=== PATIENT | male | born 1930 | race Caucasian/White ===

== ENCOUNTER → 2017-04-24 | Outpatient (CLI) | payer OTHER ==
[~2017-04-24] MED LIST: AMLODIPINE BESY10 MG PO; ASPIRIN EC325 M1 PO; CLOPIDOGREL75 MG PO; CRESTOR40 MG PO; FINASTERIDE5 MG PO; FLOMAX PO; PLAVIX 75 MG TA75 M1 PO; TAMSULOSIN HCL0.4 M1 PO; ZETIA10 MG PO; ZOCOR80 MG PO
== END ==
LOC: HYPER 06:43
DX: S91.332A Puncture wound without foreign body, left foot, initial encounter (principal); L97.821 Non-pressure chronic ulcer of other part of left lower leg limited to breakdown of skin; I25.10 Atherosclerotic heart disease of native coronary artery without angina pectoris; E78.00 Pure hypercholesterolemia, unspecified; I10 Essential (primary) hypertension; I73.9 Peripheral vascular disease, unspecified; I25.2 Old myocardial infarction; Z72.89 Other problems related to lifestyle; X58.XXXA Exposure to other specified factors, initial encounter; Y93.89 Activity, other specified; Y92.89 Other specified places as the place of occurrence of the external cause; Y99.8 Other external cause status

== ENCOUNTER → 2017-05-07 | Outpatient (CLI) | payer OTHER | LOC: HYPER 06:49 | DX: L97.821 Non-pressure chronic ulcer of other part of left lower leg limited to breakdown of skin (principal); S91.332D Puncture wound without foreign body, left foot, subsequent encounter; I25.10 Atherosclerotic heart disease of native coronary artery without angina pectoris; I73.9 Peripheral vascular disease, unspecified; I10 Essential (primary) hypertension; I25.2 Old myocardial infarction; Z72.89 Other problems related to lifestyle; X58.XXXD Exposure to other specified factors, subsequent encounter ==

== ENCOUNTER → 2017-05-20 | Outpatient (CLI) | payer OTHER | LOC: HYPER 07:10 | DX: L97.521 Non-pressure chronic ulcer of other part of left foot limited to breakdown of skin (principal); I73.9 Peripheral vascular disease, unspecified; I10 Essential (primary) hypertension; I25.10 Atherosclerotic heart disease of native coronary artery without angina pectoris; I25.2 Old myocardial infarction; E78.00 Pure hypercholesterolemia, unspecified; L84 Corns and callosities; Z98.49 Cataract extraction status, unspecified eye; Z72.89 Other problems related to lifestyle ==

== ENCOUNTER 2017-06-13 21:08 | Emergency (ER) | payer OTHER ==
[~2017-06-13] VITALS: Ht 177.8 cm; Wt 77.1 kg
[2017-06-13 23:27] VITALS: BP 150/72
[2017-11-05] MEDS ORDERED: ZOCOR20 MG PO (07:27)
[2017-11-05] MEDS ORDERED: FLOMAX0.4 MG PO (07:30)
== END 2017-06-13 23:29 | disposition home or self-care (01) ==
LOC: ER 21:08
DX: T83.098A Other mechanical complication of other urinary catheter, initial encounter (principal); I10 Essential (primary) hypertension; E78.00 Pure hypercholesterolemia, unspecified; Z96.0 Presence of urogenital implants; Z87.891 Personal history of nicotine dependence; Y84.9 Medical procedure, unspecified as the cause of abnormal reaction of the patient, or of later complication, without mention of misadventure at the time of the procedure; Y92.89 Other specified places as the place of occurrence of the external cause

== ENCOUNTER → 2017-07-10 | Outpatient (CLI) | payer OTHER ==
[~2017-07-10] MED LIST changes: +FLOMAX0.4 MG PO; +RETIN-A15 GM TOP; +ZOCOR20 MG PO
== END ==
LOC: HYPER 07-03 07:10
DX: S91.302D Unspecified open wound, left foot, subsequent encounter (principal); I73.9 Peripheral vascular disease, unspecified; I10 Essential (primary) hypertension; I25.10 Atherosclerotic heart disease of native coronary artery without angina pectoris; I25.2 Old myocardial infarction; E78.00 Pure hypercholesterolemia, unspecified; L84 Corns and callosities; Z72.89 Other problems related to lifestyle; X58.XXXD Exposure to other specified factors, subsequent encounter

== ENCOUNTER → 2017-09-15 | Outpatient (CLI) | payer OTHER ==
[~2017-09-15] MED LIST changes: -FLOMAX0.4 MG PO; -RETIN-A15 GM TOP; -ZOCOR20 MG PO
== END ==
LOC: HYPER 09-08 08:45
DX: L97.821 Non-pressure chronic ulcer of other part of left lower leg limited to breakdown of skin (principal); I73.9 Peripheral vascular disease, unspecified; I35.0 Nonrheumatic aortic (valve) stenosis; I25.10 Atherosclerotic heart disease of native coronary artery without angina pectoris; E78.1 Pure hyperglyceridemia; I10 Essential (primary) hypertension; I34.2 Nonrheumatic mitral (valve) stenosis; E78.00 Pure hypercholesterolemia, unspecified; I25.2 Old myocardial infarction

== ENCOUNTER → 2017-10-07 | Outpatient (CLI) | payer OTHER | LOC: HYPER 06:42 | DX: I70.245 Atherosclerosis of native arteries of left leg with ulceration of other part of foot (principal); L97.521 Non-pressure chronic ulcer of other part of left foot limited to breakdown of skin; L97.821 Non-pressure chronic ulcer of other part of left lower leg limited to breakdown of skin; S91.132 Puncture wound without foreign body of left great toe without damage to nail; I10 Essential (primary) hypertension; I25.2 Old myocardial infarction; I25.10 Atherosclerotic heart disease of native coronary artery without angina pectoris; I35.0 Nonrheumatic aortic (valve) stenosis; E78.1 Pure hyperglyceridemia; I34.2 Nonrheumatic mitral (valve) stenosis; E78.00 Pure hypercholesterolemia, unspecified; X58.XXXD Exposure to other specified factors, subsequent encounter ==

== ENCOUNTER → 2017-10-08 | Outpatient (CLI) | payer OTHER | LOC: ULTRA 06:56 | DX: I70.203 Unspecified atherosclerosis of native arteries of extremities, bilateral legs (principal); L97.821 Non-pressure chronic ulcer of other part of left lower leg limited to breakdown of skin ==

== ENCOUNTER → 2017-10-14 | Outpatient (CLI) | payer OTHER | LOC: HYPER 06:43 | DX: I70.245 Atherosclerosis of native arteries of left leg with ulceration of other part of foot (principal); L97.521 Non-pressure chronic ulcer of other part of left foot limited to breakdown of skin; I10 Essential (primary) hypertension; I25.10 Atherosclerotic heart disease of native coronary artery without angina pectoris; I25.2 Old myocardial infarction; I35.0 Nonrheumatic aortic (valve) stenosis; E78.1 Pure hyperglyceridemia; I34.2 Nonrheumatic mitral (valve) stenosis; E78.00 Pure hypercholesterolemia, unspecified; E78.5 Hyperlipidemia, unspecified ==

== ENCOUNTER 2017-10-28 07:54 | Observation (INO) | payer OTHER ==
[~2017-10-28] VITALS: Ht 177.8 cm; Wt 76.2 kg
[2017-10-28] MEDS ORDERED: ZETIA10 MG PO (08:01)
[2017-10-28] MEDS ORDERED: RETIN-A15 GM TOP (08:02)
[2017-10-28] MEDS ORDERED: FINASTERIDE5 MG PO (08:07)
[2017-10-28 08:12] VITALS: BP 183/72
[2017-10-28 12:48] VITALS: BP 151/69
[2017-11-05] MEDS ORDERED: ZOCOR20 MG PO (07:27)
[2017-11-05] MEDS ORDERED: FLOMAX0.4 MG PO (07:30)
== END 2017-10-28 18:51 | disposition home or self-care (01) ==
LOC: SPEC 07:54 → 2N 14:10
DX: I73.9 Peripheral vascular disease, unspecified (principal); I25.10 Atherosclerotic heart disease of native coronary artery without angina pectoris; I10 Essential (primary) hypertension; E78.00 Pure hypercholesterolemia, unspecified; M19.90 Unspecified osteoarthritis, unspecified site; L97.529 Non-pressure chronic ulcer of other part of left foot with unspecified severity; I35.0 Nonrheumatic aortic (valve) stenosis; I70.1 Atherosclerosis of renal artery; I74.5 Embolism and thrombosis of iliac artery; I34.2 Nonrheumatic mitral (valve) stenosis; Z87.891 Personal history of nicotine dependence; Z98.890 Other specified postprocedural states; Z95.5 Presence of coronary angioplasty implant and graft; Z72.89 Other problems related to lifestyle

== ENCOUNTER → 2017-11-05 | Outpatient (CLI) | payer OTHER ==
[~2017-11-05] VITALS: Ht 177.8 cm; Wt 77.1 kg
[~2017-11-05] MED LIST changes: +FLOMAX0.4 MG PO; +RETIN-A15 GM TOP; +ZOCOR20 MG PO
[2017-11-05 07:12] VITALS: BP 187/84
== END | disposition home or self-care (01) ==
LOC: SPEC 06:41
DX: I70.212 Atherosclerosis of native arteries of extremities with intermittent claudication, left leg (principal); L97.919 Non-pressure chronic ulcer of unspecified part of right lower leg with unspecified severity; I10 Essential (primary) hypertension; I25.10 Atherosclerotic heart disease of native coronary artery without angina pectoris; I25.2 Old myocardial infarction; E78.5 Hyperlipidemia, unspecified; M19.90 Unspecified osteoarthritis, unspecified site; I08.0 Rheumatic disorders of both mitral and aortic valves; Z98.890 Other specified postprocedural states; Z95.5 Presence of coronary angioplasty implant and graft; Z87.891 Personal history of nicotine dependence; Z79.899 Other long term (current) drug therapy

== ENCOUNTER → 2017-11-19 | Outpatient (CLI) | payer OTHER | LOC: HYPER 11-12 06:51 | DX: I70.245 Atherosclerosis of native arteries of left leg with ulceration of other part of foot (principal); L97.521 Non-pressure chronic ulcer of other part of left foot limited to breakdown of skin; I10 Essential (primary) hypertension; I25.10 Atherosclerotic heart disease of native coronary artery without angina pectoris; I25.2 Old myocardial infarction; E78.00 Pure hypercholesterolemia, unspecified; E78.1 Pure hyperglyceridemia; I34.2 Nonrheumatic mitral (valve) stenosis; I35.0 Nonrheumatic aortic (valve) stenosis; Z98.49 Cataract extraction status, unspecified eye ==

== ENCOUNTER → 2018-09-02 | Outpatient (CLI) | payer OTHER | LOC: HYPER 06:50 | DX: S90.812D Abrasion, left foot, subsequent encounter (principal); I73.9 Peripheral vascular disease, unspecified; I10 Essential (primary) hypertension; I25.10 Atherosclerotic heart disease of native coronary artery without angina pectoris; E78.00 Pure hypercholesterolemia, unspecified; I25.2 Old myocardial infarction; Z79.01 Long term (current) use of anticoagulants; X58.XXXD Exposure to other specified factors, subsequent encounter ==

== ENCOUNTER → 2018-09-11 | Outpatient (CLI) | payer OTHER | LOC: HYPER 06:46 | DX: S90.812D Abrasion, left foot, subsequent encounter (principal); E78.00 Pure hypercholesterolemia, unspecified; I73.9 Peripheral vascular disease, unspecified; I25.10 Atherosclerotic heart disease of native coronary artery without angina pectoris; I10 Essential (primary) hypertension; I25.2 Old myocardial infarction; Z79.01 Long term (current) use of anticoagulants; Z95.828 Presence of other vascular implants and grafts; X58.XXXD Exposure to other specified factors, subsequent encounter ==

== ENCOUNTER 2018-09-19 13:31 | Emergency (ER) | payer OTHER ==
[~2018-09-19] VITALS: Ht 177.8 cm; Wt 77.1 kg
[2018-09-19 15:10] VITALS: BP 140/76
== END 2018-09-19 15:10 | disposition home or self-care (01) ==
LOC: ER 13:31
DX: S90.922A Unspecified superficial injury of left foot, initial encounter (principal); I25.10 Atherosclerotic heart disease of native coronary artery without angina pectoris; E78.00 Pure hypercholesterolemia, unspecified; I10 Essential (primary) hypertension; Z95.5 Presence of coronary angioplasty implant and graft; I73.9 Peripheral vascular disease, unspecified; X58.XXXA Exposure to other specified factors, initial encounter; Y93.89 Activity, other specified; Y92.89 Other specified places as the place of occurrence of the external cause; Y99.8 Other external cause status

== ENCOUNTER → 2018-10-02 | Outpatient (CLI) | payer OTHER | LOC: HYPER 07:58 | DX: L89.893 Pressure ulcer of other site, stage 3 (principal); I73.9 Peripheral vascular disease, unspecified; I25.10 Atherosclerotic heart disease of native coronary artery without angina pectoris; E78.00 Pure hypercholesterolemia, unspecified; I10 Essential (primary) hypertension; I25.2 Old myocardial infarction; Z79.01 Long term (current) use of anticoagulants ==

== ENCOUNTER → 2018-10-16 | Outpatient (CLI) | payer OTHER | LOC: HYPER 08:05 | DX: L89.893 Pressure ulcer of other site, stage 3 (principal); I73.9 Peripheral vascular disease, unspecified; E78.00 Pure hypercholesterolemia, unspecified; I25.10 Atherosclerotic heart disease of native coronary artery without angina pectoris; I10 Essential (primary) hypertension; I25.2 Old myocardial infarction; Z79.01 Long term (current) use of anticoagulants; Z95.828 Presence of other vascular implants and grafts ==

== ENCOUNTER → 2018-10-23 | Outpatient (CLI) | payer OTHER | LOC: HYPER 08:27 | DX: S90.812D Abrasion, left foot, subsequent encounter (principal); L89.893 Pressure ulcer of other site, stage 3; E78.00 Pure hypercholesterolemia, unspecified; I25.10 Atherosclerotic heart disease of native coronary artery without angina pectoris; I10 Essential (primary) hypertension; I73.9 Peripheral vascular disease, unspecified; I25.2 Old myocardial infarction; Z79.01 Long term (current) use of anticoagulants; Z95.828 Presence of other vascular implants and grafts; W19.XXXD Unspecified fall, subsequent encounter ==

== ENCOUNTER → 2018-11-02 | Outpatient (CLI) | payer OTHER | LOC: HYPER 06:49 | DX: L89.893 Pressure ulcer of other site, stage 3 (principal); S90.812D Abrasion, left foot, subsequent encounter; I73.9 Peripheral vascular disease, unspecified; I25.10 Atherosclerotic heart disease of native coronary artery without angina pectoris; E78.00 Pure hypercholesterolemia, unspecified; I10 Essential (primary) hypertension; I25.2 Old myocardial infarction; Z79.01 Long term (current) use of anticoagulants; X58.XXXD Exposure to other specified factors, subsequent encounter ==

== ENCOUNTER → 2018-11-09 | Outpatient (CLI) | payer OTHER | LOC: HYPER 07:09 | DX: L89.893 Pressure ulcer of other site, stage 3 (principal); S90.812D Abrasion, left foot, subsequent encounter; I73.9 Peripheral vascular disease, unspecified; I25.10 Atherosclerotic heart disease of native coronary artery without angina pectoris; E78.00 Pure hypercholesterolemia, unspecified; I10 Essential (primary) hypertension; I25.2 Old myocardial infarction; Z79.01 Long term (current) use of anticoagulants; X58.XXXD Exposure to other specified factors, subsequent encounter ==

== ENCOUNTER → 2018-11-16 | Outpatient (CLI) | payer OTHER | LOC: HYPER 06:43 | DX: L89.893 Pressure ulcer of other site, stage 3 (principal); I73.9 Peripheral vascular disease, unspecified; I25.10 Atherosclerotic heart disease of native coronary artery without angina pectoris; E78.00 Pure hypercholesterolemia, unspecified; I10 Essential (primary) hypertension; I25.2 Old myocardial infarction; Z79.01 Long term (current) use of anticoagulants ==

== ENCOUNTER 2018-11-23 06:19 | Inpatient (IN) | payer OTHER ==
[~2018-11-23] VITALS: Ht 177.8 cm; Wt 72.6 kg
--- NOTE | 2018-11-23 17:47 | NUR ---
PT ARRIVED TO [facility] FROM DR BENAVIDES'S OFFICE DIRECT ADMIT AT 1630.ADMISSION HX,ASSESSMENT AND CARE PLAN COMPLETED.DR LARSON NOTIFIED ABOUT PT ARRIVED TO FLOOR.ERIC COLLET MAKING MACHINE OPERATOR ROUNDED ON PT AND ORDER NOTED.IV TEAM PLACED PIV.WILL CONTINUE TO MONITOR.
[2018-11-23 17:57] VITALS: BP 148/63
[2018-11-23 18:21] LABS: ABSOLUTE NEUTROPHILS 5.1 thou/uL (1.4-8.2); BASOPHILS 0.7 % (0.0-2.0); EOSINOPHILS 1.3 % (0.0-3.0); HEMATOCRIT 37.7 % (42.0-52.0); HEMOGLOBIN 12.5 gm/dL (14.0-18.0); LYMPHOCYTES 40.6 % (24.0-44.0); MCH 31.8 pg (26.0-34.0); MCHC 33.2 g/dL (28.0-37.0); MONOCYTES 10.2 % (1.0-8.0); PLATELET COUNT 133 thou/uL (150-400); POLYS 47.2 % (36.0-66.0); RBC 3.93 mil/uL (4.50-6.00); RDW 15.2 % (10.5-14.5); WBC 10.7 thou/uL (4.0-11.0)
[2018-11-23 18:38] LABS: ALBUMIN 3.6 g/dL (3.4-5.0); CALCIUM 9.3 mg/dL (8.5-10.1); POTASSIUM 4.2 mmol/L (3.5-5.1); TOTAL BILIRUBIN 0.6 mg/dL (<0.1-1.0)
[2018-11-23 22:49] LABS: URINE BILIRUBIN NEGATIVE (Negative); URINE BLOOD NEGATIVE (Negative); URINE CLARITY CLEAR; URINE COLOR YELLOW; URINE GLUCOSE-RANDOM* NEGATIVE (Negative); URINE KETONES NEGATIVE (Negative); URINE LEUKOCYTES-REFLEX NEGATIVE (Negative); URINE NITRITE-REFLEX NEGATIVE (Negative); URINE PROTEIN (DIPSTICK) NEGATIVE (Negative); URINE UROBILINOGEN 0.2 E.U./dl (0.2-1.0)
--- NOTE | 2018-11-24 01:04 | NUR ---
PT IS ALERT AND ORIENTED. USES URINAL BY THE BEDSIDE-OTHERWISE WALKS TO THE BATHROOM IF NEEDED. WOUND TO LEFT FOOT-PICTURES TAKEN. UNABLE TO COLLECT WOUND CULTURE SINCE NO DRAINAGE WAS NOTED. LEFT FOOT IS WARM, SLIGHTLY SWOLLEN AND WARM TO TOUCH. PEDAL PULSES PRESENT.AFEBRILE.STARTED ON IV ABTS.NO FURTHER CONCERNS.
[2018-11-24 04:37] VITALS: BP 148/66
[2018-11-24 07:16] VITALS: BP 158/68
--- NOTE | 2018-11-24 10:52 | NUR ---
Assumed pt care at 7am.Pt in and out of bed for activities.Assessment completed.vss.Pt c/o left foot pain rated 7/10.Oxycodone po given with relief. Dr Borja and Peter here,order noted.Pt will be going for mri at 1115 today. No further c/o.Will continue to monitor.
--- NOTE | 2018-11-24 12:23 | NUR ---
ASSESSMENT-PT LIVES AT HOME WITH HIS WHO IS YOUNGER THAN HE AND IN GOOD HEALTH., BOTH DRIVE. PT HAS BEEN USING A KNEE SCOOTER TO GET AROUND. HE DOES HIS OWN ADLS. DOES THE COOKING, CLEANING AND LAUNDRY. HE SEES DR SELF FOR WOUND CARE. PT HAS HAD [facility] IN THE PAST. PT HAS A SISTER IN THE AREA. FOLLOWING TO ASSIST WITH DC PLANNING. PT HAVING A MRI OF HIS LEFT FOOT TODAY.
[2018-11-24 15:58] VITALS: BP 116/43
[2018-11-24 19:40] VITALS: BP 136/53
--- NOTE | 2018-11-25 04:27 | NUR ---
RESTED GOOD, UP ADLIB, DRESSING LEFT FOOT CDI, STAYED LATE LAST NOC. PAIN TO BACK, CONTINUE TO ASK FOR OXYCODONE. TOLERATING ORAL INTAKE. ON IV ANTIBITICS, VANC AND ROCEPHIN, TOLERATING THEM BOTH..ABLE TO TURN AND REPOSITION SELF, MONITORED.
[2018-11-25 04:45] VITALS: BP 147/54
--- NOTE | 2018-11-25 08:39 | HC ---
[facility] [place] [address] CONSULTATION Name: MATILDE INGRAM Room #: 428-P ADM IN M.R.#: [id number] Admission: 11/23/18 ������������������ Attend Phys: Ishaan Borja MD Discharge: ������������������ Date of : 31 Report #: [id number] THIS REPORT FOR: //name// CC: Ishaan De La Rosa DATE OF SERVICE: 11/24/2018 WOUND CARE CONSULTATION PERSONAL PHYSICIAN: Hernan Zafar M.D. CHIEF COMPLAINT: Left foot wound with cellulitis. HISTORY OF PRESENT ILLNESS: This is an 87-year-old white male who was seen in the wound clinic yesterday for a chronic wound on his left foot, which was having increased erythema, warmth and tenderness. The patient has currently been on doxycycline for the past 4 days. The patient, while in the Wound Care Clinic, was felt to have failed outpatient antibiotic therapy and was warranted for IV antibiotics. The patient was agreeable to the admission. The patient states he actually feels better today. The pain in his left foot is much improved. The patient has not had his MRI that has been ordered. I did review with the patient and his in regards to his most recent angiogram, which was one year ago. It basically showed single vessel runoff on the peroneal below the knee and no distal targets for bypass grafting. A recent arterial Doppler within the past week confirmed this patency of the left SFA stent and once again, the single vessel runoff of the left peroneal artery. The patient denies fevers or chills. The patient once again feels that his foot has actually improved since yesterday after now 3 doses of IV antibiotics. PAST MEDICAL HISTORY: Significant for coronary artery disease with previous stent to his RCA and LAD. 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 MEDICATIONS: Current medications are multiple. I reviewed the patient's medication list. The patient is on Plavix. DRUG ALLERGIES: None. SOCIAL HISTORY: The patient has a remote history of smoking approximately 61-qdcd-hhyo history, but quit several years ago. Drinks alcohol socially. FAMILY HISTORY: Not pertinent to current medical condition. [address] [address] CONSULTATION Name: MATILDE INGRAM Room #: 428-P [facility] IN M.R.#: [id number] Admission: 11/23/18 ������������������ Attend Phys: Ishaan Borja MD Discharge: ������������������ Date of : 31 Report #: [id number] REVIEW OF SYSTEMS: CONSTITUTIONAL: The patient denies fevers or chills. NEUROLOGIC: The patient denies numbness, tingling or weakness in the arms or legs. EYES: No complaints. ENT: No complaints. CARDIAC: The patient denies chest pain, palpitations or peripheral edema. RESPIRATORY: The patient denies shortness breath, cough or wheezes. GASTROINTESTINAL: The patient denies nausea, vomiting or abdominal pain. GENITOURINARY: The patient denies urgency or frequency. MUSCULOSKELETAL: No complaints. SKIN: The patient has a chronic ulceration on the plantar aspect of his left fifth metatarsal head. PHYSICAL EXAMINATION: VITAL SIGNS: Temperature 36.4, pulse 72, respiratory rate 18 and blood pressure 158/68. GENERAL: This is an alert and oriented x 3, pleasant white male, who is in no obvious distress. HEENT: Normocephalic, atraumatic. Mucous membranes are moist. Pupils are round. Sclerae are white. NECK: Supple, without JVD. LUNGS: Clear. HEART: Regular. ABDOMEN: Soft, nontender. EXTREMITIES: The patient has no edema. Distal pulses are faint in both feet. Evaluation of the left foot reveals decreased erythema and warmth compared to yesterday and decreased edema. The plantar ulceration on the left fifth metatarsal head is approximately 80% slough filled and 20% granulation tissue. There is no involvement of deeper structures. There is no undermining or tunneling. Megha-wound is mildly erythematous. There is moderate amount of serosanguineous drainage noted without odor. NEUROLOGIC: Cranial nerves 2-12 are grossly intact. Motor and sensory grossly intact. LABORATORY VALUES: White count 10.7, hemoglobin 12.5. Sed rate is 44. BUN 19, creatinine 1.0. Albumin is 3.6. IMPRESSION: 1. Chronic ulceration, plantar aspect of the left foot fifth metatarsal head, limited breakdown of subcutaneous tissue. 2. Cellulitis, left foot. 3. History of severe peripheral vascular disease, status post stent placement. 4. History of coronary artery disease. PLAN: At this time, we will continue with IV antibiotics as well as a foam [address] [address] CONSULTATION Name: MATILDE INGRAM Room #: 428-P ADM IN M.R.#: [id number] Admission: 11/23/18 ������������������ Attend Phys: Ishaan Borja MD Discharge: ������������������ Date of : 31 Report #: [id number] dressing to the left foot. We will change the dressing daily. We will continue to follow the patient clinically to see how he responds to IV antibiotics can be able to discharge him to home. Wound culture is pending. We will make sure we maximize the patient's oral protein supplementation for continued healing. We will continue all other current medications. ��������������������������������������������� <ELECTRONICALLY SIGNED> ���������������������������������������� By: Charles De La Rosa MD ��������������������������������������������� 11/25/18 0839 1143 1415 Charles De La Rosa MD /nt
--- NOTE | 2018-11-25 10:42 | NUR ---
ASSUMED CARE OF PT AT 0700. ASSESSMENT CHARTED. A&O,X4. [place], HEARING AID X1 NOTED. DENIES LEFT FOOT PAIN, WOUND CARE GIVEN ORDERED. HTN, PHYSICIAN NOTIFIED. RESTARTED HOME BP MEDS ORDERED. WILL CONTINUE TO MONITOR UNTIL EOS.
--- NOTE | 2018-11-25 14:01 | HC ---
[facility] [place] [address] CONSULTATION Name: MATILDE INGRAM Room #: 428-P ADM IN M.R.#: [id number] Admission: 11/23/18 ������������������ Attend Phys: Ishaan Borja MD Discharge: ������������������ Date of : 31 Report #: [id number] THIS REPORT FOR: //name// CC: Ishaan De La Rosa DATE OF SERVICE: 11/24/2018 INFECTIOUS DISEASE CONSULTATION REASON FOR CONSULTATION: I was asked to evaluate concerning left foot soft tissue infection. HISTORY OF PRESENT ILLNESS: The patient is an 87-year-old with peripheral vascular disease, 6 weeks ago, had debridement of a callus involving the plantar aspect of his fifth metatarsal head. Subsequently, has had a wound that has failed to heal. He has been treated with outpatient oral antibiotics without improvement. Most recently, he has been on doxycycline. Has a moderate amount of pain in the left foot. Has distal vascular obstruction. His left lower extremity stents remain patent. He is a past smoker. No other injuries. He also developed an ulceration to the medial aspect of his third toe on the left foot. He reports no other injuries. He was admitted yesterday, placed on IV antibiotic therapy. ALLERGIES: None. MEDICATIONS: As noted on his MAR, which were reviewed. PAST MEDICAL HISTORY: Coronary artery disease, peripheral vascular disease, previous stenting, hypertension, hyperlipidemia, and aortic and mitral stenosis. FAMILY HISTORY: Noncontributory. SOCIAL HISTORY: Past smoker, no significant alcohol intake. Retired from [employer] in [place]. REVIEW OF SYSTEMS: Ten-point review was negative other than what has been described above. PHYSICAL EXAMINATION: VITAL SIGNS: Afebrile and hemodynamically stable. GENERAL: He is alert, cooperative, and pleasant, in no acute distress. SKIN: Without rash or decubitus. Further described on his extremity examination, no lymphadenopathy palpable. HEENT: Eyes, without scleral icterus. Mouth without mucositis. [facility] [address] [place] [address] CONSULTATION Name: MATILDE INGRAM Room #: 428-P [facility] IN .R.#: [id number] Admission: 11/23/18 ������������������ Attend Phys: Ishaan Borja MD Discharge: ������������������ Date of : 31 Report #: [id number] NECK: Supple. LUNGS: Clear. HEART: Regular with a 2/6 murmur at left sternal border as well as at the apex. ABDOMEN: Soft and nontender with no hepatosplenomegaly or mass. EXTREMITIES: Pulses in the groin were normal. Diminished pulse in the popliteal. Absent pulses in the foot. He had a left plantar foot wound over the metatarsal head. There was no purulent drainage. There were surrounding erythema. He had dependent rubor. Also, an ulceration over the medial aspect of his third toe. There is minimal drainage. Capillary refill is slow. Sensation in the feet intact. Mood normal. Strength in his upper and lower extremities was normal. LABORATORY STUDIES: Hemoglobin 12.5 and white count 10.7. Sedimentation rate 44, creatinine 1. MRI scan, no evidence of osteomyelitis or abscess. I am awaiting culture results, they were obtained in the outpatient setting. IMPRESSION: An 87-year-old with peripheral vascular disease and nonhealing wound to the left lateral foot. I am suspecting nonhealing due to his vascular insufficiency. We will await culture results. In the meantime, we will continue IV antibiotic therapy. May wish Vascular Radiology to reevaluate if anything else is stentable. If not, may need surgical evaluation for distal bypass. Otherwise, we will continue antibiotics, wound care, offloading. ��������������������������������������������� <ELECTRONICALLY SIGNED> ���������������������������������������� By: Sim Cortes MD ��������������������������������������������� 11/25/18 1401 2039 0432 Sim Cortes MD /nt
[2018-11-25 14:34] VITALS: BP 132/52
[2018-11-25 15:07] VITALS: BP 132/52
--- NOTE | 2018-11-25 15:12 | NUR ---
Pt dcing home later today with his . Plan at this time is to resume hh nursing with [facility]. Wound cultures being sent out today. Pt to dc home on po atb and see dr. liao next Friday and dr. De La Rosa in the wound clinic next week. Pt and spouse updated at bedside. Nursing aware of the dc plan. Awaiting final orders. [facility] can accept for readmission.
[2018-11-25] MEDS ORDERED: CEFDINIR300 MG PO (16:11)
[2018-11-25] MEDS ORDERED: PROBIOTIC1 EAC2 PO (16:11)
[2018-11-25 16:20] VITALS: BP 132/52
[2018-11-25 16:28] VITALS: BP 137/66
[2018-11-25] MEDS ORDERED: CIPRO500 MG PO (16:29)
== END 2018-11-25 17:49 | disposition home health service (06) | DRG 603 ==
LOC: HYPER 06:19 → 4E 15:53
PROVIDERS: Nurse Practitioner; ADMIT Internal Medicine
DX: L03.116 Cellulitis of left lower limb (principal); L97.829 Non-pressure chronic ulcer of other part of left lower leg with unspecified severity; I25.10 Atherosclerotic heart disease of native coronary artery without angina pectoris; I10 Essential (primary) hypertension; E78.00 Pure hypercholesterolemia, unspecified; I73.9 Peripheral vascular disease, unspecified; E78.5 Hyperlipidemia, unspecified; M19.90 Unspecified osteoarthritis, unspecified site; G89.29 Other chronic pain; M54.9 Dorsalgia, unspecified; N40.0 Benign prostatic hyperplasia without lower urinary tract symptoms; Z87.891 Personal history of nicotine dependence; Z95.820 Peripheral vascular angioplasty status with implants and grafts; Z79.899 Other long term (current) drug therapy; Z95.5 Presence of coronary angioplasty implant and graft
CPT/HCPCS: 10783

== ENCOUNTER → 2018-12-04 | Outpatient (CLI) | payer OTHER ==
[~2018-12-04] MED LIST changes: +CEFDINIR300 MG PO; +CIPRO500 MG PO; +PROBIOTIC1 EAC2 PO
== END ==
LOC: HYPER 07:03
DX: I70.245 Atherosclerosis of native arteries of left leg with ulceration of other part of foot (principal); L97.521 Non-pressure chronic ulcer of other part of left foot limited to breakdown of skin; L89.893 Pressure ulcer of other site, stage 3; S90.812D Abrasion, left foot, subsequent encounter; I10 Essential (primary) hypertension; I25.10 Atherosclerotic heart disease of native coronary artery without angina pectoris; E78.00 Pure hypercholesterolemia, unspecified; I25.2 Old myocardial infarction; Z79.01 Long term (current) use of anticoagulants; X58.XXXD Exposure to other specified factors, subsequent encounter

== ENCOUNTER → 2018-12-11 | Outpatient (CLI) | payer OTHER | LOC: HYPER 06:49 | DX: L89.893 Pressure ulcer of other site, stage 3 (principal); S90.812D Abrasion, left foot, subsequent encounter; I73.9 Peripheral vascular disease, unspecified; I25.10 Atherosclerotic heart disease of native coronary artery without angina pectoris; E78.00 Pure hypercholesterolemia, unspecified; I10 Essential (primary) hypertension; I25.2 Old myocardial infarction; Z79.01 Long term (current) use of anticoagulants; X58.XXXD Exposure to other specified factors, subsequent encounter ==

== ENCOUNTER → 2018-12-18 | Outpatient (CLI) | payer OTHER | LOC: HYPER 06:48 | DX: S90.812D Abrasion, left foot, subsequent encounter (principal); L89.893 Pressure ulcer of other site, stage 3; E78.00 Pure hypercholesterolemia, unspecified; I73.9 Peripheral vascular disease, unspecified; I25.10 Atherosclerotic heart disease of native coronary artery without angina pectoris; I10 Essential (primary) hypertension; I25.2 Old myocardial infarction; Z79.01 Long term (current) use of anticoagulants; Z95.828 Presence of other vascular implants and grafts ==

== ENCOUNTER → 2018-12-23 | Outpatient (CLI) | payer OTHER | LOC: HYPER 06:38 | DX: L89.893 Pressure ulcer of other site, stage 3 (principal); S90.812D Abrasion, left foot, subsequent encounter; E78.00 Pure hypercholesterolemia, unspecified; I25.10 Atherosclerotic heart disease of native coronary artery without angina pectoris; I10 Essential (primary) hypertension; I73.9 Peripheral vascular disease, unspecified; I25.2 Old myocardial infarction; Z95.818 Presence of other cardiac implants and grafts; Z79.01 Long term (current) use of anticoagulants; W19.XXXD Unspecified fall, subsequent encounter ==

== ENCOUNTER → 2019-01-01 | Outpatient (CLI) | payer OTHER | LOC: HYPER 08:04 | DX: S80.812D Abrasion, left lower leg, subsequent encounter (principal); L89.893 Pressure ulcer of other site, stage 3; I10 Essential (primary) hypertension; I73.9 Peripheral vascular disease, unspecified; I25.10 Atherosclerotic heart disease of native coronary artery without angina pectoris; E78.00 Pure hypercholesterolemia, unspecified; I25.2 Old myocardial infarction; Z79.01 Long term (current) use of anticoagulants; X58.XXXD Exposure to other specified factors, subsequent encounter ==

== ENCOUNTER → 2019-01-08 | Outpatient (CLI) | payer OTHER | LOC: HYPER 08:40 | DX: S90.812D Abrasion, left foot, subsequent encounter (principal); L89.893 Pressure ulcer of other site, stage 3; E78.00 Pure hypercholesterolemia, unspecified; I73.9 Peripheral vascular disease, unspecified; I25.10 Atherosclerotic heart disease of native coronary artery without angina pectoris; I10 Essential (primary) hypertension; I25.2 Old myocardial infarction; Z79.01 Long term (current) use of anticoagulants; Z95.828 Presence of other vascular implants and grafts; X58.XXXD Exposure to other specified factors, subsequent encounter ==

== ENCOUNTER → 2019-01-11 | Outpatient (CLI) | payer OTHER | LOC: HYPER 09:15 | DX: L89.893 Pressure ulcer of other site, stage 3 (principal); S90.812D Abrasion, left foot, subsequent encounter; I73.9 Peripheral vascular disease, unspecified; I25.10 Atherosclerotic heart disease of native coronary artery without angina pectoris; I10 Essential (primary) hypertension; I25.2 Old myocardial infarction; E78.00 Pure hypercholesterolemia, unspecified; Z79.01 Long term (current) use of anticoagulants; X58.XXXD Exposure to other specified factors, subsequent encounter ==

== ENCOUNTER → 2019-01-18 | Outpatient (CLI) | payer OTHER | LOC: HYPER 01-15 07:41 | DX: S90.812D Abrasion, left foot, subsequent encounter (principal); L89.893 Pressure ulcer of other site, stage 3; E78.00 Pure hypercholesterolemia, unspecified; I25.10 Atherosclerotic heart disease of native coronary artery without angina pectoris; I10 Essential (primary) hypertension; I73.9 Peripheral vascular disease, unspecified; I25.2 Old myocardial infarction; Z95.818 Presence of other cardiac implants and grafts; Z79.01 Long term (current) use of anticoagulants; W19.XXXD Unspecified fall, subsequent encounter ==

== ENCOUNTER → 2019-01-29 | Outpatient (CLI) | payer OTHER | LOC: HYPER 07:03 | DX: S90.812D Abrasion, left foot, subsequent encounter (principal); L89.893 Pressure ulcer of other site, stage 3; E78.00 Pure hypercholesterolemia, unspecified; I25.10 Atherosclerotic heart disease of native coronary artery without angina pectoris; I10 Essential (primary) hypertension; I73.9 Peripheral vascular disease, unspecified; I25.2 Old myocardial infarction; Z79.01 Long term (current) use of anticoagulants; Z95.828 Presence of other vascular implants and grafts; W19.XXXD Unspecified fall, subsequent encounter ==

== ENCOUNTER → 2019-02-05 | Outpatient (CLI) | payer OTHER | LOC: HYPER 07:00 | DX: L89.893 Pressure ulcer of other site, stage 3 (principal); S90.812D Abrasion, left foot, subsequent encounter; I73.9 Peripheral vascular disease, unspecified; I25.10 Atherosclerotic heart disease of native coronary artery without angina pectoris; I10 Essential (primary) hypertension; I25.2 Old myocardial infarction; I05.0 Rheumatic mitral stenosis; E78.00 Pure hypercholesterolemia, unspecified; Z79.01 Long term (current) use of anticoagulants; X58.XXXD Exposure to other specified factors, subsequent encounter ==

== ENCOUNTER → 2019-02-11 | Outpatient (CLI) | payer OTHER | LOC: HYPER 07:00 | DX: L89.893 Pressure ulcer of other site, stage 3 (principal); S90.812D Abrasion, left foot, subsequent encounter; I73.9 Peripheral vascular disease, unspecified; I25.10 Atherosclerotic heart disease of native coronary artery without angina pectoris; E78.00 Pure hypercholesterolemia, unspecified; I10 Essential (primary) hypertension; I25.2 Old myocardial infarction; Z79.01 Long term (current) use of anticoagulants; X58.XXXD Exposure to other specified factors, subsequent encounter ==

== ENCOUNTER → 2019-02-19 | Outpatient (CLI) | payer OTHER | LOC: HYPER 08:53 | DX: L89.893 Pressure ulcer of other site, stage 3 (principal); S90.812D Abrasion, left foot, subsequent encounter; I73.9 Peripheral vascular disease, unspecified; I25.10 Atherosclerotic heart disease of native coronary artery without angina pectoris; E78.00 Pure hypercholesterolemia, unspecified; I10 Essential (primary) hypertension; I25.2 Old myocardial infarction; Z79.01 Long term (current) use of anticoagulants; X58.XXXD Exposure to other specified factors, subsequent encounter ==

== ENCOUNTER → 2019-05-12 | Outpatient (CLI) | payer OTHER | LOC: HYPER 13:58 | DX: L89.893 Pressure ulcer of other site, stage 3 (principal); S90.122A Contusion of left lesser toe(s) without damage to nail, initial encounter; S91.104A Unspecified open wound of right lesser toe(s) without damage to nail, initial encounter; I73.9 Peripheral vascular disease, unspecified; I25.10 Atherosclerotic heart disease of native coronary artery without angina pectoris; I10 Essential (primary) hypertension; E78.00 Pure hypercholesterolemia, unspecified; I25.2 Old myocardial infarction; Z79.01 Long term (current) use of anticoagulants; X58.XXXA Exposure to other specified factors, initial encounter; Y93.89 Activity, other specified; Y92.89 Other specified places as the place of occurrence of the external cause; Y99.8 Other external cause status ==

== ENCOUNTER 2019-05-21 12:30 | Emergency (ER) | payer OTHER ==
[~2019-05-21] VITALS: Ht 177.8 cm; Wt 72.6 kg
[2019-05-21] MEDS ORDERED: GABAPENTIN 100100 MG PO (12:47)
[2019-05-21] MEDS ORDERED: NORCO 5-325 TA1 EAC1 PO (12:47)
[2019-05-21] MEDS ORDERED: DOXYCYCLINE 10100 M2 PO (12:47)
[2019-05-21 14:00] VITALS: BP 110/78
== END 2019-05-21 14:00 | disposition home or self-care (01) ==
LOC: ER 12:30
DX: R23.8 Other skin changes (principal); I10 Essential (primary) hypertension; E78.00 Pure hypercholesterolemia, unspecified; Z87.891 Personal history of nicotine dependence

== ENCOUNTER → 2019-05-24 | Outpatient (CLI) | payer OTHER ==
[~2019-05-24] MED LIST changes: +DOXYCYCLINE 10100 M2 PO; +GABAPENTIN 100100 MG PO; +NORCO 5-325 TA1 EAC1 PO
== END ==
LOC: HYPER 13:05
DX: S90.122D Contusion of left lesser toe(s) without damage to nail, subsequent encounter (principal); S90.414D Abrasion, right lesser toe(s), subsequent encounter; L89.893 Pressure ulcer of other site, stage 3; E78.00 Pure hypercholesterolemia, unspecified; I25.10 Atherosclerotic heart disease of native coronary artery without angina pectoris; I10 Essential (primary) hypertension; I73.9 Peripheral vascular disease, unspecified; I25.2 Old myocardial infarction; Z95.828 Presence of other vascular implants and grafts; Z79.01 Long term (current) use of anticoagulants; W19.XXXD Unspecified fall, subsequent encounter

== ENCOUNTER → 2019-06-07 | Outpatient (CLI) | payer OTHER | LOC: HYPER 10:14 | DX: S90.122A Contusion of left lesser toe(s) without damage to nail, initial encounter (principal); L89.893 Pressure ulcer of other site, stage 3; I73.9 Peripheral vascular disease, unspecified; I10 Essential (primary) hypertension; I25.2 Old myocardial infarction; I25.10 Atherosclerotic heart disease of native coronary artery without angina pectoris; E78.00 Pure hypercholesterolemia, unspecified; Z95.5 Presence of coronary angioplasty implant and graft; Z79.01 Long term (current) use of anticoagulants; X58.XXXA Exposure to other specified factors, initial encounter; Y93.89 Activity, other specified; Y92.89 Other specified places as the place of occurrence of the external cause; Y99.8 Other external cause status ==

== ENCOUNTER → 2019-06-22 | Outpatient (CLI) | payer OTHER | LOC: HYPER 11:04 | DX: S90.122D Contusion of left lesser toe(s) without damage to nail, subsequent encounter (principal); L89.893 Pressure ulcer of other site, stage 3; E78.00 Pure hypercholesterolemia, unspecified; I25.2 Old myocardial infarction; I73.9 Peripheral vascular disease, unspecified; I25.10 Atherosclerotic heart disease of native coronary artery without angina pectoris; I10 Essential (primary) hypertension; Z79.01 Long term (current) use of anticoagulants; Z95.828 Presence of other vascular implants and grafts; X58.XXXD Exposure to other specified factors, subsequent encounter ==

== ENCOUNTER → 2019-07-07 | Outpatient (CLI) | payer OTHER | LOC: HYPER 08:16 | DX: I70.245 Atherosclerosis of native arteries of left leg with ulceration of other part of foot (principal); L97.521 Non-pressure chronic ulcer of other part of left foot limited to breakdown of skin; L89.893 Pressure ulcer of other site, stage 3; S90.122D Contusion of left lesser toe(s) without damage to nail, subsequent encounter; E78.00 Pure hypercholesterolemia, unspecified; I25.10 Atherosclerotic heart disease of native coronary artery without angina pectoris; I10 Essential (primary) hypertension; I25.2 Old myocardial infarction; Z79.01 Long term (current) use of anticoagulants; Z95.828 Presence of other vascular implants and grafts; X58.XXXD Exposure to other specified factors, subsequent encounter ==

== ENCOUNTER → 2019-07-21 | Outpatient (CLI) | payer OTHER | LOC: HYPER 13:23 | DX: I70.245 Atherosclerosis of native arteries of left leg with ulceration of other part of foot (principal); L89.893 Pressure ulcer of other site, stage 3; L97.521 Non-pressure chronic ulcer of other part of left foot limited to breakdown of skin; I25.10 Atherosclerotic heart disease of native coronary artery without angina pectoris; E78.00 Pure hypercholesterolemia, unspecified; I10 Essential (primary) hypertension; H26.9 Unspecified cataract; I25.2 Old myocardial infarction ==

== ENCOUNTER → 2019-08-04 | Outpatient (CLI) | payer OTHER | LOC: HYPER 14:14 | DX: I70.245 Atherosclerosis of native arteries of left leg with ulceration of other part of foot (principal); L89.893 Pressure ulcer of other site, stage 3; L97.521 Non-pressure chronic ulcer of other part of left foot limited to breakdown of skin; S90.122D Contusion of left lesser toe(s) without damage to nail, subsequent encounter; I25.10 Atherosclerotic heart disease of native coronary artery without angina pectoris; E78.00 Pure hypercholesterolemia, unspecified; I10 Essential (primary) hypertension; H26.9 Unspecified cataract; I25.2 Old myocardial infarction; Z95.828 Presence of other vascular implants and grafts; Z79.01 Long term (current) use of anticoagulants; W19.XXXD Unspecified fall, subsequent encounter ==

== ENCOUNTER → 2019-08-18 | Outpatient (CLI) | payer OTHER | LOC: HYPER 12:50 | DX: I70.245 Atherosclerosis of native arteries of left leg with ulceration of other part of foot (principal); L89.893 Pressure ulcer of other site, stage 3; L97.521 Non-pressure chronic ulcer of other part of left foot limited to breakdown of skin; S90.122D Contusion of left lesser toe(s) without damage to nail, subsequent encounter; E78.00 Pure hypercholesterolemia, unspecified; I25.10 Atherosclerotic heart disease of native coronary artery without angina pectoris; I10 Essential (primary) hypertension; I25.2 Old myocardial infarction; Z79.01 Long term (current) use of anticoagulants; Z95.828 Presence of other vascular implants and grafts; X58.XXXD Exposure to other specified factors, subsequent encounter ==

== ENCOUNTER → 2019-08-25 | Outpatient (CLI) | payer OTHER | LOC: HYPER 10:18 | DX: I70.245 Atherosclerosis of native arteries of left leg with ulceration of other part of foot (principal); L89.893 Pressure ulcer of other site, stage 3; L97.521 Non-pressure chronic ulcer of other part of left foot limited to breakdown of skin; L84 Corns and callosities; S90.122D Contusion of left lesser toe(s) without damage to nail, subsequent encounter; E78.00 Pure hypercholesterolemia, unspecified; I25.10 Atherosclerotic heart disease of native coronary artery without angina pectoris; I10 Essential (primary) hypertension; I25.2 Old myocardial infarction; Z79.01 Long term (current) use of anticoagulants; Z95.828 Presence of other vascular implants and grafts; X58.XXXD Exposure to other specified factors, subsequent encounter ==

== ENCOUNTER → 2019-09-06 | Outpatient (CLI) | payer OTHER | LOC: HYPER 09:55 | DX: I70.245 Atherosclerosis of native arteries of left leg with ulceration of other part of foot (principal); L89.893 Pressure ulcer of other site, stage 3; L97.521 Non-pressure chronic ulcer of other part of left foot limited to breakdown of skin; S90.122D Contusion of left lesser toe(s) without damage to nail, subsequent encounter; L84 Corns and callosities; E78.00 Pure hypercholesterolemia, unspecified; H26.9 Unspecified cataract; I25.10 Atherosclerotic heart disease of native coronary artery without angina pectoris; I10 Essential (primary) hypertension; I25.2 Old myocardial infarction; I05.0 Rheumatic mitral stenosis; Z79.01 Long term (current) use of anticoagulants; Z95.828 Presence of other vascular implants and grafts; X58.XXXD Exposure to other specified factors, subsequent encounter ==

== ENCOUNTER → 2019-09-20 | Outpatient (CLI) | payer OTHER | LOC: HYPER 13:34 | DX: I70.245 Atherosclerosis of native arteries of left leg with ulceration of other part of foot (principal); L89.893 Pressure ulcer of other site, stage 3; L97.521 Non-pressure chronic ulcer of other part of left foot limited to breakdown of skin; S90.122D Contusion of left lesser toe(s) without damage to nail, subsequent encounter; E78.00 Pure hypercholesterolemia, unspecified; H26.9 Unspecified cataract; I25.10 Atherosclerotic heart disease of native coronary artery without angina pectoris; I10 Essential (primary) hypertension; I25.2 Old myocardial infarction; Z79.01 Long term (current) use of anticoagulants; Z95.828 Presence of other vascular implants and grafts; W19.XXXD Unspecified fall, subsequent encounter ==

== ENCOUNTER → 2019-09-27 | Outpatient (CLI) | payer OTHER | LOC: HYPER 13:22 | DX: I70.245 Atherosclerosis of native arteries of left leg with ulceration of other part of foot (principal); L89.893 Pressure ulcer of other site, stage 3; L97.521 Non-pressure chronic ulcer of other part of left foot limited to breakdown of skin; S90.122D Contusion of left lesser toe(s) without damage to nail, subsequent encounter; I25.10 Atherosclerotic heart disease of native coronary artery without angina pectoris; E78.00 Pure hypercholesterolemia, unspecified; I10 Essential (primary) hypertension; H26.9 Unspecified cataract; I25.2 Old myocardial infarction; Z95.828 Presence of other vascular implants and grafts; X58.XXXD Exposure to other specified factors, subsequent encounter ==

== ENCOUNTER → 2019-10-04 | Outpatient (CLI) | payer OTHER | LOC: HYPER 10:23 | DX: I70.245 Atherosclerosis of native arteries of left leg with ulceration of other part of foot (principal); L89.893 Pressure ulcer of other site, stage 3; L97.521 Non-pressure chronic ulcer of other part of left foot limited to breakdown of skin; S90.122D Contusion of left lesser toe(s) without damage to nail, subsequent encounter; I25.10 Atherosclerotic heart disease of native coronary artery without angina pectoris; E78.00 Pure hypercholesterolemia, unspecified; I10 Essential (primary) hypertension; H26.9 Unspecified cataract; Z79.01 Long term (current) use of anticoagulants; X58.XXXD Exposure to other specified factors, subsequent encounter ==

== ENCOUNTER → 2019-10-12 | Outpatient (CLI) | payer OTHER ==
[~2019-10-12] MED LIST changes: +AUGMENTIN 875-1 EACH PO; +PERCOCET 5-3251 EACH PO
== END ==
LOC: HYPER 13:16
DX: I70.245 Atherosclerosis of native arteries of left leg with ulceration of other part of foot (principal); L97.522 Non-pressure chronic ulcer of other part of left foot with fat layer exposed; S90.122D Contusion of left lesser toe(s) without damage to nail, subsequent encounter; E78.00 Pure hypercholesterolemia, unspecified; H26.9 Unspecified cataract; I25.10 Atherosclerotic heart disease of native coronary artery without angina pectoris; I10 Essential (primary) hypertension; I25.2 Old myocardial infarction; Z79.01 Long term (current) use of anticoagulants; Z95.818 Presence of other cardiac implants and grafts; X58.XXXD Exposure to other specified factors, subsequent encounter

== ENCOUNTER 2019-10-16 13:42 | Inpatient (IN) | payer OTHER ==
[~2019-10-16] VITALS: Ht 177.8 cm; Wt 73.9 kg
[~2019-10-16 13:42] MED LIST changes: -AUGMENTIN 875-1 EACH PO; -PERCOCET 5-3251 EACH PO
[2019-10-16 13:56] VITALS: BP 161/46
[2019-10-16 15:40] LABS: ABSOLUTE NEUTROPHILS 6.8 thou/uL (1.4-8.2); BASOPHILS 0.5 % (0.0-2.0); EOSINOPHILS 0.8 % (0.0-3.0); HEMATOCRIT 41.1 % (42.0-52.0); HEMOGLOBIN 13.8 gm/dL (14.0-18.0); LYMPHOCYTES 21.7 % (24.0-44.0); MCH 32.5 pg (26.0-34.0); MCHC 33.6 g/dL (28.0-37.0); MCV 96.6 fL (80.0-100.0); MONOCYTES 11.1 % (1.0-8.0); PLATELET COUNT 159 thou/uL (150-400); POLYS 65.9 % (36.0-66.0); RBC 4.25 mil/uL (4.50-6.00); RDW 15.9 % (10.5-14.5); WBC 10.4 thou/uL (4.0-11.0)
[2019-10-16 15:48] LABS: CALCIUM 8.5 mg/dL (8.5-10.1); CREATININE 1.2 mg/dL (0.7-1.3); POTASSIUM 4.8 mmol/L (3.5-5.1)
[2019-10-16 15:54] LABS: ALBUMIN 3.1 g/dL (3.4-5.0); TOTAL BILIRUBIN 0.6 mg/dL (<0.1-1.0); TOTAL PROTEIN 7.5 g/dL (6.4-8.2)
[2019-10-16 18:34] VITALS: BP 150/60
--- NOTE | 2019-10-16 18:40 | NUR ---
NURSE NOT AVAILABLE TO TAKE MY CALL/REPORT
[2019-10-16 18:55] VITALS: BP 120/60
[2019-10-16 19:45] VITALS: BP 146/66
--- NOTE | 2019-10-17 03:21 | NUR ---
ADMITTED FROM ER UNDER 'S CARE. LTOE GANGRENE. PIC TAKEN AND NEW DRESSING APPLIED. VSS. NO S/S ACUTE DISTRESS NOTED OR REPORTED AT THIS TIME. WILL CONT TO MONITOR FOR ANY CHANGES IN CONDITION.
[2019-10-17 04:48] VITALS: BP 149/49
--- NOTE | 2019-10-17 07:50 | NUR ---
Patient's left foot wound is dry, wound culture speciment can not be obtained, lab notified, will contact the doctor.
[2019-10-17 08:01] VITALS: BP 163/74
[2019-10-17 15:27] VITALS: BP 154/64
--- NOTE | 2019-10-17 19:42 | NUR ---
A/o, compained pain in left foot, pain medication given and worked. Abx given. patient did not have good appetite, but claiming he was trying his best to each as much as he could. afebrile, no n/v. assessment without abnormalities expecept previously noted.
[2019-10-17 19:55] VITALS: BP 165/66
--- NOTE | 2019-10-17 22:12 | NUR ---
PT WAS TRANSFERRED TO [facility]. REPORT CALLED TO CANELO SWANN. BELONGINGS SENT WITH THE PT. SPOUSE AINSLEY WAS CALLED AND MADE AWARE OF THE TRANSFER.
[2019-10-18 04:29] VITALS: BP 145/72
--- NOTE | 2019-10-18 07:41 | NUR ---
PT TRANSFERRED FROM AT 2230. AMBULATING TO BATHROOM INDEPENDNETLY. LORTAB PROVIDING PAIN RELIEF. RESTING COMFORTABLY. NO NEEDS VOICED. CALL LIGHT WITHIN REACH. FREQUENT OBSERVATION.
[2019-10-18 08:40] VITALS: BP 161/67
--- NOTE | 2019-10-18 13:40 | HC ---
[facility] [place] [address] CONSULTATION Name: MATILDE INGRAM Room #: 447-P ADM IN M.R.#: [id number] Admission: 10/16/19 Attend Phys: Ishaan Borja MD Discharge: Date of : 31 Report #: [id number] THIS REPORT FOR: cc: Patrick Samuel Ronald D. DO [place], Allen B. MD ~ CC: Ishaan Samuel DATE OF SERVICE: 10/17/2019 WOUND CARE CONSULTATION REASON FOR CONSULTATION: Dry gangrene and cellulitis of left second toe in the setting of severe known peripheral vascular disease of left leg. HISTORY OF PRESENT ILLNESS: The patient is an 88-year-old gentleman well known to Dr. Charles De La Rosa from recent treatments and to Dr. Jonn Rivers from previous vascular interventions. Dr. Mccauley is his primary care physician. His wound care patient of Dr. De La Rosa in [facility]. Dr. Rivers has treated the patient with Interventional Radiology in 2018 with peripheral angioplasty and stenting of his left lower extremity. There indications this may have been "end stage" peripheral vascular disease. The patient was subsequently seen at [facility] and may have had additional peripheral angioplasty or stenting. The patient has had chronic trouble with the left leg and left second toe hospitalized a year ago for cellulitis of the left leg and an ulcer of the left second toe. This was treated with antibiotics. Very recently the toes become worse with increased pain, redness and tenderness. He is now hospitalized and on IV antibiotics, vancomycin and Zosyn. The patient complains of pain in the toe feels that it is worse. PAST MEDICAL HISTORY: Coronary artery disease, history of left toe ulcer and left leg cellulitis. ALLERGIES: No known drug allergies. MEDICATIONS: Plavix, Crestor, recent doxycycline, Neurontin, [place], Zetia, Retin-A, Flomax. PAST SURGICAL HISTORY: Multiple plastic surgeries including facial, coronary artery disease with stenting, stenting of left leg. PAST MEDICAL HISTORY of peripheral artery disease, aortic and mitral stenosis, degenerative joint disease, hypercholesterolemia, hypertension. [facility] [address] [place] [address] CONSULTATION Name: MATILDE INGRAM Room #: 447-P [facility] IN M.R.#: [id number] Admission: 10/16/19 Attend Phys: Ishaan Borja MD Discharge: Date of : 31 Report #: [id number] REVIEW OF SYSTEMS: Pain in the left second toe. PHYSICAL EXAMINATION: GENERAL: Shows a well-appearing elderly gentleman who has had some facial plastic surgery, alert, pleasant, conversant. HEENT: Mucous membranes moist. NECK: Supple. LUNGS: Respirations are unlabored. ABDOMEN: Soft. EXTREMITIES: Shows dry gangrene of the left second toe through to the dorsal interphalangeal joint. This is dry and black without drainage. There is some redness and tenderness of the proximal left second toe. This does not appear to extend to the foot. Pulses are not palpable. X-ray of left foot shows no bony disease. IMPRESSION: 1. Coronary artery disease with stenting. 2. Severe peripheral vascular disease of left lower extremity with multiple past vascular and interventional procedures now gangrene of the left second toe. Dry gangrene demarcated to the distal interphalangeal joint with cellulitis of the left second toe. PLAN: Dry dressings to the left foot, IV antibiotics. Dr. Rivers is aware that the patient back in the hospital and asked to be consulted, Friday morning. We will observe on IV antibiotics, some form of amputation we needed with vascular involvement with some form of amputation we will be needed with vascular opinion and involvement. <ELECTRONICALLY SIGNED> By: Cristo Dickens MD 10/18/19 1340 1335 1622 Cristo Dickens MD /nt
[2019-10-18 16:13] VITALS: BP 120/61
--- NOTE | 2019-10-18 18:00 | NUR ---
Assumed care of pt at 0700. Pt a&ox4. Seen by wound doctor. IV antibiotics infusing. Up ad césar in the room. Prn pain meds administered per pt request. Call light within reach. Will continue to monitor.
[2019-10-18 19:50] VITALS: BP 178/63
--- NOTE | 2019-10-19 03:05 | NUR ---
ASSUMED PT CARE AT 1900. PT IS UP AD SHARMAINE IN ROOM. PAIN BEING MANAGED WITH PO PAIN MEDS. PM MEDS PASSED. NO SIGNIFICANT CHANGES OVERNIGHT.
--- NOTE | 2019-10-19 10:50 | NUR ---
chart, milena visited with pt via phone call. intro to cm and dcp. he a & o x 4, and able to make his needs know. " i had iv fore 4 days i should be able to do home. live with , independent. drive, shower chair, manage own medication. 3 steps to enter then everything on main level. don't have to go up stairs that is where extra bedrooms are. go to [facility] wound clinic. i want to go home"/tara. will cont following as needed for dc needs.
--- NOTE | 2019-10-19 13:29 | NUR ---
Assess due to pt with left foot gangrene, PVD. Goes to wound care clinic. Visit during lunch, not happy with meal. Listened to concerns and provided pt with alternative menu to make own selections which he appreciated. Drinks high protein drinks at home and willing to take Ensure (straw) bid. Wt down mild 7 lb since last year. Had comment of no chicken or tomatoes in diet order however pt states he eats these foods and has no food allergies. Will change diet order. Low nutrition risk
[2019-10-19] MEDS ORDERED: PERCOCET 5-3251 EACH PO (15:06)
[2019-10-19 15:25] VITALS: BP 131/60
--- NOTE | 2019-10-19 18:42 | NUR ---
VSS-AFEBRILE. LUNGS CLEAR-ROOM AIR. PAIN WELL CONTROLLED ON HOME DOSE OF OXYCODONE. COVID TEST COMPLETED AND SENT TO LAB IN ANTICIPATION OF SURGERY TOMORROW. OOB AD SHARMAINE-STEADY ON FEET. CALLS APPROPRIATELY FOR ANY NEEDED ASSISTANCE.
[2019-10-19 19:14] VITALS: BP 154/77
--- NOTE | 2019-10-20 03:35 | NUR ---
GOT A CALL FROM LAB TO GET AEROBIC AND ANEROBIC SWAB OF PT'S SECOND L TOE.PT'S TOE DRY AND BLACK WITH NO DRAINAGE.PT REF TX AND SWAB OF TOE.PT UP ADLIB IN THE ROOM.PT WAS GIVEN PAIN MED AND ANXIEY MED PER HIS REQUEST.PT NPO AT THIS TIME FOR A PROCEDURE IN THE AM.PT RESTING ON HIS BED AT THIS TIME.CALL LIGHT WITHIN REACH.
[2019-10-20 04:05] VITALS: BP 150/65
[2019-10-20 05:35] LABS: HEMATOCRIT 39.7 % (42.0-52.0); HEMOGLOBIN 13.1 gm/dL (14.0-18.0); MCH 32.2 pg (26.0-34.0); MCHC 33.1 g/dL (28.0-37.0); MCV 97.2 fL (80.0-100.0); RBC 4.08 mil/uL (4.50-6.00); RDW 15.8 % (10.5-14.5); WBC 7.7 thou/uL (4.0-11.0)
[2019-10-20 05:48] LABS: CALCIUM 8.2 mg/dL (8.5-10.1); CREATININE 1.3 mg/dL (0.7-1.3); MAGNESIUM 2.2 mg/dL (1.8-2.4); POTASSIUM 4.6 mmol/L (3.5-5.1)
[2019-10-20 05:49] LABS: APTT 29.1 Seconds (24.5-32.8); PROTIME 10.7 Seconds (9.3-11.4)
[2019-10-20 07:57] VITALS: BP 126/52
--- NOTE | 2019-10-20 16:19 | NUR ---
PT HAVING TOE AMPUTATED THIS DAY. AWAITING THERAPY EVALS POST OP TO DETERMINE CARE NEEDS. CM TO FOLLOW INDICATED WITH DC PLANNING.
--- NOTE | 2019-10-20 20:09 | NUR ---
VSS-AFEBRILE. LUNGS CLEAR-PLACED ON 2LNC POST OP DUE TO SAO2 <92% WHEN FALLING ASLEEP. LEFT FOOT SURGICAL DRESSING DRY AND INTACT. PAIN WELL CONTROLLED WITH BOTH IV AND PO PAIN MEDICATION. SPOKE WITH AINSLEY, PATIENTS FRIEND, AND UPDATED ON CURRENT CONDITION AND PLAN OF CARE. NO DIFFICULTY VOIDING POST OPERATIEVELY. CALLS APPROPRIATELY FOR ANY NEEDED ASSISTANCE.
[2019-10-20 22:27] VITALS: BP 125/71
--- NOTE | 2019-10-21 00:21 | NUR ---
PT AOX4, NOTED TO BE [place]. PT REPORTS PAIN IN RIGHT LEFT FOOT AND TOES. PT RECEIVING PRN PO OXYCODONE Q6HR AND PRN IV MORPHINE Q4HR. PT ALSO REPORTS ANXIETY. PT RECEIVING PRN PO XANAX Q2HR. PT AMBULATING FROM BED TO BEDSIDE COMMODE WITH STANDBY ASSIST. PT USING URINAL WHILE IN BED. PT TOLERATING PO INTAKE OF FLUIDS WITHOUT ISSUE. PT INDEPENDENT WITH REPOSITIONING WHILE IN BED. PT ENCOURAGED TO NOTIFY STAFF FOR ALL NEEDS. CALL LIGHT WITHIN REACH, BED IN LOWEST POSITION, BED ALARM ON, BED LOCKED. WILL CONTINUE TO MONITOR.
[2019-10-21 07:10] VITALS: BP 146/71
--- NOTE | 2019-10-21 10:06 | O ---
[facility] [place] [place] [address] OPERATIVE REPORT Name: MATILDE INGRAM Room #: 447-P ADM IN M.R.#: [id number] Admission: 10/16/19 Attend Phys: Ishaan Borja MD Discharge: Date of : 31 Report #: [id number] THIS REPORT FOR: cc: Patrick Samuel,Kurt Sanchez MD ~ CC: Ishaan Samuel DATE OF SERVICE: 10/20/2019 PREOPERATIVE DIAGNOSIS: Left second toe dry gangrene. POSTOPERATIVE DIAGNOSIS: Left second toe dry gangrene. PROCEDURE: Left second toe amputation at the proximal interphalangeal joint. SURGEON: Kurt Moseley MD ANESTHESIA: LMA. ESTIMATED BLOOD LOSS: 5 mL. COMPLICATIONS: None. SPECIMENS: Left second toe was sent to pathology. CONDITION UPON LEAVING THE OPERATING ROOM: Stable. INDICATIONS FOR PROCEDURE: The patient is an 88-year-old gentleman who has had dry gangrene of the left second toe for several months. 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 After discussion with him, he elected for a second toe amputation, left foot. DESCRIPTION OF PROCEDURE: Risks, benefits, alternatives, and complications were discussed in detail with the patient including but not limited to risk of anesthesia, risk of damage to nerves, arteries, blood vessels, risk for infection, bleeding, risk for continued infection and need for higher level of amputation. Informed consent was obtained from the patient. Left foot was appropriately marked in the preoperative holding area and has already been on preoperative antibiotics as treatment for his gangrene. He was brought to the operating room and placed in supine position on operating room table. LMA anesthesia was induced without complication. Left foot was then prepped and draped in normal sterile fashion. Timeout was performed properly identifying the patient and procedure and all in the operating room were in agreement. The [address] [address] OPERATIVE REPORT Name: MATILDE INGRAM Room #: 447-P [facility] IN M.R.#: [id number] Admission: 10/16/19 Attend Phys: Ishaan Borja MD Discharge: Date of : 31 Report #: [id number] base of the gangrenous tissue was then incised with a #10-blade around the skin down to the bone. The middle phalanx was dissected out and amputated through the PIP joint. There was a bleeding skin tissue. This was thoroughly irrigated with normal saline. The plantar flap was then brought dorsally inserted to the dorsal skin with 3-0 nylon. Soft dressing of Xeroform, 4 x 4's, and Osito wrap were applied. The patient tolerated this procedure well and went to recovery room under care of anesthesia postoperatively. <ELECTRONICALLY SIGNED> By: Kurt Moseley MD 10/21/19 1006 1741 1801 Kurt Moseley MD /sandip
--- NOTE | 2019-10-21 15:48 | NUR ---
STILL AWAITING POST OP SHOE TO BE DELIVERED BY [facility]. THERAPY HAD ATTEMPTED TO WORK WITH PT BUT NEED SHOE. CM CALLED AND SPOKE WITH PT'S SPOUSE SHE HAD CALLED NURSE REPEAEDLY ANXIOUS ABOUT PT'S DC. CM EXPLAINED WE WERE WAITING ON POST OP SHOE THEN THERAPY WOULD ASSESS SAFTEY AND MOBILITY AND MAKE RECOMMENDATIONS FOR NEEDS UPON DC. SHE EXPRESSED INTEREST IN HH AND A FW FOR PT UPON DC. CM TO FOLLOW INDICATED WITH DC PLANNING.
[2019-10-21 16:00] VITALS: BP 127/40
--- NOTE | 2019-10-21 18:35 | NUR ---
VSS-AFEBRILE. VERY TIRED TODAY, BUT PARTICIPATED IN THERAPY. ORTHOTIC BOOT DELIVERED FROM [facility], AND IS READY FOR NEXT THERAPY SESSION. OOB WITH 1 ASSIST TO CHAIR FOR MEALS. PAIN WELL CONTROLLED WITH OCCASIONAL IV AND PO PAIN MEDICATIONS. LEFT FOOT DRESSING DRY AND INTACT. CALLS APPROPRIATELY FOR ANY NEEDED ASSISTANCE.
[2019-10-21 20:58] VITALS: BP 154/67
[2019-10-22 04:00] VITALS: BP 142/63
--- NOTE | 2019-10-22 05:48 | NUR ---
ASSUMED PT CARE AT 1900. PAIN REPORTS PAIN IN RANGES OF 5-10/10. PO AND IV PAIN MEDS GIVEN. ANTIBTIOTICS INFUSING PER ORDER. PT IS STEADY ON FEET. SLEPT WELL TONIGHT. PT STATES HE DOES NOT WANT REHAB, HE WOULD JUST LIKE TO GO HOME.
[2019-10-22 08:11] VITALS: BP 133/63
[2019-10-22] MEDS ORDERED: AUGMENTIN 875-1 EACH PO (12:55)
[2019-10-22] MEDS ORDERED: PERCOCET 5-3251 EACH PO (12:55)
[2019-10-22 13:15] VITALS: BP 133/63
[2019-10-22 14:01] VITALS: BP 133/63
--- NOTE | 2019-10-22 17:08 | PATH ---
[facility] [address] [place] [address] PATHOLOGY RPT PROCEDURE Name: ISSAC VALLEJO Room #: 447-P DIS IN M.R.#: [id number] Admission: 10/16/19 Date of : 32 Discharge: 10/22/19 Report #: [id number] Path Case #: [id number] LCA Accession Number: [id number] . 01 Material submitted: . toe - LEFT SECOND TOE. Modifiers: left, second . 01 Clinical history: . Cellulitis; gangrene; wound on left foot; failed OP treatment . 02 Diagnosis: Toe, left second toe, amputation: - Marked acute osteomyelitis. - Skin and subcutaneous tissue with extensive gangrenous necrosis as well as fibrinoid degeneration. - Bone margin viable. (IUV:fritz; 10/22/2019) QMS 10/22/2019 1344 Local . 02 Electronically signed: . Nadine U Vadlamani, MD, Pathologist NPI- [id number] . 01 Gross description: . The specimen is received in formalin, labeled "Issac Vallejo, left second toe". Received is an AP dated digit measuring 3.2 x 1.8 x 1.6 cm in greatest dimensions. The bone margin is smooth and concave in appearance, consistent with disarticulation. The bone and soft tissue margins are inked black. The nail is absent. The epidermal surface is light brown to dusky hurd-brown and slightly necrotic in appearance. A full-thickness longitudinal cross-section is submitted from proximal to distal aspects in cassettes A1 and A2, following decalcification. (CAA; 10/21/2019) QAC/QAC 10/21/2019 1322 Local . 02 Pathologist provided ICD-10: M86.172, I96 . 02 CPT . 400004, 330736 Specimen Comment: A courtesy copy of this report has been sent to [phone] Specimen Comment: [phone], Specimen Comment: Report sent to ,DR LARSON / DR POZO Performed at: [address] [facility], [place], [place] [address] [place] [address] PATHOLOGY RPT PROCEDURE Name: ISSAC VALLEJO Room #: 447-P DIS IN M.R.#: [id number] Admission: 10/16/19 Date of : 32 Discharge: 10/22/19 Report #: [id number] Path Case #: [id number] MD Toi Garcia MD Phone: [phone] Performed at: [address] [id number] MD Nadine Castillo MD Phone: [phone]
== END 2019-10-22 13:44 | disposition home health service (06) | DRG 255 ==
LOC: ER 13:42 → EROBS 16:42 → 4S 16:42 → 4W 19:17 → 4S 10-17 22:19
PROVIDERS: Physician Assistant; ADMIT Internal Medicine; ATTEND Internal Medicine
PROC: 0Y6S0Z1 Detachment at Left 2nd Toe, High, Open Approach (ICD-10-PCS; principal; 2019-10-20)
DX: I70.262 Atherosclerosis of native arteries of extremities with gangrene, left leg (principal); R65.11 Systemic inflammatory response syndrome (SIRS) of non-infectious origin with acute organ dysfunction; M86.172 Other acute osteomyelitis, left ankle and foot; L03.116 Cellulitis of left lower limb; M86.8X7 Other osteomyelitis, ankle and foot; Z20.828 Contact with and (suspected) exposure to other viral communicable diseases; I25.10 Atherosclerotic heart disease of native coronary artery without angina pectoris; I10 Essential (primary) hypertension; E78.00 Pure hypercholesterolemia, unspecified; M19.90 Unspecified osteoarthritis, unspecified site; E78.5 Hyperlipidemia, unspecified; G89.4 Chronic pain syndrome; Z87.891 Personal history of nicotine dependence; Z95.5 Presence of coronary angioplasty implant and graft; Z79.899 Other long term (current) drug therapy
CPT/HCPCS: 10040; 10195; 50010; 50101; 50386; 56527; 57091; 62110; 62900; 70005

== ENCOUNTER → 2019-10-28 | Outpatient (CLI) | payer OTHER ==
[~2019-10-28] MED LIST changes: +AUGMENTIN 875-1 EACH PO; +PERCOCET 5-3251 EACH PO
== END ==
LOC: HYPER 08:16
DX: T87.81 Dehiscence of amputation stump (principal); L89.896 Pressure-induced deep tissue damage of other site; L97.522 Non-pressure chronic ulcer of other part of left foot with fat layer exposed; S90.122D Contusion of left lesser toe(s) without damage to nail, subsequent encounter; E78.00 Pure hypercholesterolemia, unspecified; H26.9 Unspecified cataract; I73.9 Peripheral vascular disease, unspecified; I25.10 Atherosclerotic heart disease of native coronary artery without angina pectoris; I10 Essential (primary) hypertension; I25.2 Old myocardial infarction; Z79.01 Long term (current) use of anticoagulants; Z95.828 Presence of other vascular implants and grafts; X58.XXXD Exposure to other specified factors, subsequent encounter; Y83.5 Amputation of limb(s) as the cause of abnormal reaction of the patient, or of later complication, without mention of misadventure at the time of the procedure

== ENCOUNTER → 2019-11-04 | Outpatient (CLI) | payer OTHER | LOC: HYPER 08:37 | PROVIDERS: ATTEND Emergency Medicine | DX: T87.81 Dehiscence of amputation stump (principal); L89.896 Pressure-induced deep tissue damage of other site; L97.522 Non-pressure chronic ulcer of other part of left foot with fat layer exposed; S90.122D Contusion of left lesser toe(s) without damage to nail, subsequent encounter; E78.00 Pure hypercholesterolemia, unspecified; I73.9 Peripheral vascular disease, unspecified; H26.9 Unspecified cataract; I25.10 Atherosclerotic heart disease of native coronary artery without angina pectoris; I10 Essential (primary) hypertension; I25.2 Old myocardial infarction; Z79.01 Long term (current) use of anticoagulants; Z95.828 Presence of other vascular implants and grafts; X58.XXXD Exposure to other specified factors, subsequent encounter; Y83.5 Amputation of limb(s) as the cause of abnormal reaction of the patient, or of later complication, without mention of misadventure at the time of the procedure ==

== ENCOUNTER → 2019-11-15 | Outpatient (CLI) | payer OTHER | LOC: HYPER 13:55 | PROVIDERS: ATTEND Emergency Medicine | DX: T87.81 Dehiscence of amputation stump (principal); L89.896 Pressure-induced deep tissue damage of other site; L97.522 Non-pressure chronic ulcer of other part of left foot with fat layer exposed; S90.822D Blister (nonthermal), left foot, subsequent encounter; S90.122D Contusion of left lesser toe(s) without damage to nail, subsequent encounter; I73.89 Other specified peripheral vascular diseases; I25.10 Atherosclerotic heart disease of native coronary artery without angina pectoris; E78.00 Pure hypercholesterolemia, unspecified; I10 Essential (primary) hypertension; I05.0 Rheumatic mitral stenosis; H26.9 Unspecified cataract; I25.2 Old myocardial infarction; N40.0 Benign prostatic hyperplasia without lower urinary tract symptoms; Z79.01 Long term (current) use of anticoagulants; Z95.828 Presence of other vascular implants and grafts; X58.XXXD Exposure to other specified factors, subsequent encounter; Y83.5 Amputation of limb(s) as the cause of abnormal reaction of the patient, or of later complication, without mention of misadventure at the time of the procedure ==

== ENCOUNTER → 2019-12-02 | Outpatient (CLI) | payer OTHER | LOC: HYPER 07:32 | PROVIDERS: ATTEND Emergency Medicine | DX: T87.81 Dehiscence of amputation stump (principal); L89.896 Pressure-induced deep tissue damage of other site; L97.522 Non-pressure chronic ulcer of other part of left foot with fat layer exposed; S90.122D Contusion of left lesser toe(s) without damage to nail, subsequent encounter; E78.00 Pure hypercholesterolemia, unspecified; H26.9 Unspecified cataract; I73.9 Peripheral vascular disease, unspecified; I25.10 Atherosclerotic heart disease of native coronary artery without angina pectoris; I10 Essential (primary) hypertension; I25.2 Old myocardial infarction; Z79.01 Long term (current) use of anticoagulants; Z95.828 Presence of other vascular implants and grafts; X58.XXXD Exposure to other specified factors, subsequent encounter; Y83.5 Amputation of limb(s) as the cause of abnormal reaction of the patient, or of later complication, without mention of misadventure at the time of the procedure ==

== ENCOUNTER → 2019-12-16 | Outpatient (CLI) | payer OTHER | LOC: HYPER 10:50 | PROVIDERS: ATTEND Emergency Medicine | DX: T87.81 Dehiscence of amputation stump (principal); L89.896 Pressure-induced deep tissue damage of other site; L97.522 Non-pressure chronic ulcer of other part of left foot with fat layer exposed; S90.122D Contusion of left lesser toe(s) without damage to nail, subsequent encounter; E78.00 Pure hypercholesterolemia, unspecified; H26.9 Unspecified cataract; I73.9 Peripheral vascular disease, unspecified; I25.10 Atherosclerotic heart disease of native coronary artery without angina pectoris; I10 Essential (primary) hypertension; I25.2 Old myocardial infarction; Z95.828 Presence of other vascular implants and grafts; Z79.01 Long term (current) use of anticoagulants; Y83.5 Amputation of limb(s) as the cause of abnormal reaction of the patient, or of later complication, without mention of misadventure at the time of the procedure ==

== ENCOUNTER → 2019-12-23 | Outpatient (CLI) | payer OTHER | LOC: HYPER 08:42 | PROVIDERS: ATTEND Emergency Medicine | DX: T87.81 Dehiscence of amputation stump (principal); I70.245 Atherosclerosis of native arteries of left leg with ulceration of other part of foot; L97.522 Non-pressure chronic ulcer of other part of left foot with fat layer exposed; L89.896 Pressure-induced deep tissue damage of other site; S90.122D Contusion of left lesser toe(s) without damage to nail, subsequent encounter; E78.00 Pure hypercholesterolemia, unspecified; H26.9 Unspecified cataract; I25.10 Atherosclerotic heart disease of native coronary artery without angina pectoris; I10 Essential (primary) hypertension; I25.2 Old myocardial infarction; Z79.01 Long term (current) use of anticoagulants; Z95.828 Presence of other vascular implants and grafts; Y83.5 Amputation of limb(s) as the cause of abnormal reaction of the patient, or of later complication, without mention of misadventure at the time of the procedure; X58.XXXD Exposure to other specified factors, subsequent encounter ==

== ENCOUNTER → 2020-01-03 | Outpatient (CLI) | payer OTHER | LOC: HYPER 13:07 | PROVIDERS: ATTEND Emergency Medicine Emergency Medical Services | DX: T87.81 Dehiscence of amputation stump (principal); I70.245 Atherosclerosis of native arteries of left leg with ulceration of other part of foot; L89.896 Pressure-induced deep tissue damage of other site; L97.522 Non-pressure chronic ulcer of other part of left foot with fat layer exposed; S90.122D Contusion of left lesser toe(s) without damage to nail, subsequent encounter; I25.10 Atherosclerotic heart disease of native coronary artery without angina pectoris; E78.00 Pure hypercholesterolemia, unspecified; I10 Essential (primary) hypertension; H26.9 Unspecified cataract; I25.2 Old myocardial infarction; N40.0 Benign prostatic hyperplasia without lower urinary tract symptoms; Z79.01 Long term (current) use of anticoagulants; Z95.828 Presence of other vascular implants and grafts; X58.XXXD Exposure to other specified factors, subsequent encounter; Y83.5 Amputation of limb(s) as the cause of abnormal reaction of the patient, or of later complication, without mention of misadventure at the time of the procedure ==

== ENCOUNTER → 2020-01-10 | Outpatient (CLI) | payer OTHER | LOC: HYPER 13:09 | PROVIDERS: ATTEND Emergency Medicine | DX: T87.81 Dehiscence of amputation stump (principal); I70.245 Atherosclerosis of native arteries of left leg with ulceration of other part of foot; L89.896 Pressure-induced deep tissue damage of other site; L97.522 Non-pressure chronic ulcer of other part of left foot with fat layer exposed; S90.122D Contusion of left lesser toe(s) without damage to nail, subsequent encounter; I25.10 Atherosclerotic heart disease of native coronary artery without angina pectoris; E78.00 Pure hypercholesterolemia, unspecified; I10 Essential (primary) hypertension; H26.9 Unspecified cataract; I25.2 Old myocardial infarction; N40.0 Benign prostatic hyperplasia without lower urinary tract symptoms; Z79.01 Long term (current) use of anticoagulants; Z95.828 Presence of other vascular implants and grafts; Y83.5 Amputation of limb(s) as the cause of abnormal reaction of the patient, or of later complication, without mention of misadventure at the time of the procedure; X58.XXXD Exposure to other specified factors, subsequent encounter ==

== ENCOUNTER → 2020-01-18 | Outpatient (CLI) | payer OTHER | LOC: HYPER 13:03 | PROVIDERS: ATTEND Emergency Medicine | DX: T87.81 Dehiscence of amputation stump (principal); I70.245 Atherosclerosis of native arteries of left leg with ulceration of other part of foot; L89.896 Pressure-induced deep tissue damage of other site; L97.526 Non-pressure chronic ulcer of other part of left foot with bone involvement without evidence of necrosis; S90.122D Contusion of left lesser toe(s) without damage to nail, subsequent encounter; I25.10 Atherosclerotic heart disease of native coronary artery without angina pectoris; E78.00 Pure hypercholesterolemia, unspecified; I10 Essential (primary) hypertension; H26.9 Unspecified cataract; I25.2 Old myocardial infarction; N40.0 Benign prostatic hyperplasia without lower urinary tract symptoms; Z79.01 Long term (current) use of anticoagulants; Z95.828 Presence of other vascular implants and grafts; X58.XXXD Exposure to other specified factors, subsequent encounter; Y83.5 Amputation of limb(s) as the cause of abnormal reaction of the patient, or of later complication, without mention of misadventure at the time of the procedure ==

== ENCOUNTER → 2020-01-28 | Outpatient (CLI) | payer OTHER | LOC: HYPER 09:59 | PROVIDERS: ATTEND Emergency Medicine | DX: T81.31XD Disruption of external operation (surgical) wound, not elsewhere classified, subsequent encounter (principal); I70.245 Atherosclerosis of native arteries of left leg with ulceration of other part of foot; L89.896 Pressure-induced deep tissue damage of other site; L97.522 Non-pressure chronic ulcer of other part of left foot with fat layer exposed; S90.122D Contusion of left lesser toe(s) without damage to nail, subsequent encounter; E78.00 Pure hypercholesterolemia, unspecified; H26.9 Unspecified cataract; I10 Essential (primary) hypertension; I25.10 Atherosclerotic heart disease of native coronary artery without angina pectoris; I25.2 Old myocardial infarction; Z95.828 Presence of other vascular implants and grafts; Z79.01 Long term (current) use of anticoagulants; W19.XXXD Unspecified fall, subsequent encounter; Y83.8 Other surgical procedures as the cause of abnormal reaction of the patient, or of later complication, without mention of misadventure at the time of the procedure ==

== ENCOUNTER → 2020-02-16 | Outpatient (CLI) | payer OTHER ==
[~2020-02-16] MED LIST changes: +ASA81BEC PO; +BUPROPION XL300 MG PO; +SIMVASTATIN80 MG PO
== END ==
LOC: SJCVC 14:18 → SJCVCIMAG 14:18
PROVIDERS: ATTEND Internal Medicine Cardiovascular Disease
DX: I08.8 Other rheumatic multiple valve diseases (principal); R94.31 Abnormal electrocardiogram [ECG] [EKG]; I11.9 Hypertensive heart disease without heart failure; I25.10 Atherosclerotic heart disease of native coronary artery without angina pectoris; I73.9 Peripheral vascular disease, unspecified; E78.00 Pure hypercholesterolemia, unspecified; I65.23 Occlusion and stenosis of bilateral carotid arteries; Z79.899 Other long term (current) drug therapy; Z87.891 Personal history of nicotine dependence

== ENCOUNTER → 2020-02-16 | Outpatient (CLI) | payer OTHER ==
[~2020-02-16] MED LIST changes: -ASA81BEC PO; -BUPROPION XL300 MG PO; -SIMVASTATIN80 MG PO
== END ==
LOC: HYPER 11:16
PROVIDERS: ATTEND Emergency Medicine
DX: T87.81 Dehiscence of amputation stump (principal); I70.245 Atherosclerosis of native arteries of left leg with ulceration of other part of foot; L89.896 Pressure-induced deep tissue damage of other site; L97.522 Non-pressure chronic ulcer of other part of left foot with fat layer exposed; S90.122D Contusion of left lesser toe(s) without damage to nail, subsequent encounter; E78.00 Pure hypercholesterolemia, unspecified; H26.9 Unspecified cataract; I25.10 Atherosclerotic heart disease of native coronary artery without angina pectoris; I10 Essential (primary) hypertension; I25.2 Old myocardial infarction; Z79.01 Long term (current) use of anticoagulants; Z95.828 Presence of other vascular implants and grafts; X58.XXXD Exposure to other specified factors, subsequent encounter; Y83.5 Amputation of limb(s) as the cause of abnormal reaction of the patient, or of later complication, without mention of misadventure at the time of the procedure

== ENCOUNTER → 2020-02-22 | Outpatient (CLI) | payer OTHER | LOC: LAB 02-21 07:45 | PROVIDERS: ATTEND Internal Medicine Cardiovascular Disease | DX: Z01.812 Encounter for preprocedural laboratory examination (principal); Z20.828 Contact with and (suspected) exposure to other viral communicable diseases ==

== ENCOUNTER → 2020-02-23 | Outpatient (CLI) | payer OTHER ==
[~2020-02-23] MED LIST changes: +ASA81BEC PO; +BUPROPION XL300 MG PO; +SIMVASTATIN80 MG PO
== END ==
LOC: HYPER 13:48
PROVIDERS: ATTEND Emergency Medicine
DX: T87.81 Dehiscence of amputation stump (principal); I70.245 Atherosclerosis of native arteries of left leg with ulceration of other part of foot; L89.896 Pressure-induced deep tissue damage of other site; L97.522 Non-pressure chronic ulcer of other part of left foot with fat layer exposed; S90.122D Contusion of left lesser toe(s) without damage to nail, subsequent encounter; E78.00 Pure hypercholesterolemia, unspecified; H26.9 Unspecified cataract; I25.10 Atherosclerotic heart disease of native coronary artery without angina pectoris; I10 Essential (primary) hypertension; I25.2 Old myocardial infarction; Z79.01 Long term (current) use of anticoagulants; Z95.828 Presence of other vascular implants and grafts; X58.XXXD Exposure to other specified factors, subsequent encounter; Y83.5 Amputation of limb(s) as the cause of abnormal reaction of the patient, or of later complication, without mention of misadventure at the time of the procedure

== ENCOUNTER → 2020-02-24 | Outpatient (CLI) | payer OTHER ==
[~2020-02-24] VITALS: Ht 177.8 cm; Wt 76.0 kg
[2020-02-24 07:39] VITALS: BP 164/69
[2020-02-24 07:42] LABS: HEMOGLOBIN 15.2 gm/dL (14.0-18.0); MCH 31.6 pg (26.0-34.0); MCHC 33.1 g/dL (28.0-37.0); MCV 95.5 fL (80.0-100.0); RBC 4.82 mil/uL (4.50-6.00); RDW 14.9 % (10.5-14.5); WBC 8.4 thou/uL (4.0-11.0)
[2020-02-24 07:52] LABS: CALCIUM 8.6 mg/dL (8.5-10.1); CREATININE 1.2 mg/dL (0.7-1.3); POTASSIUM 4.1 mmol/L (3.5-5.1)
--- NOTE | 2020-02-24 10:00 | NUR ---
0900 PT HAS NO VOICED COMPLAINTS. RESTING OFF AND ON. VSS.
--- NOTE | 2020-02-24 10:00 | NUR ---
0830 PT RESTING COMFORTABLY. VSS. NO VOICED COMPLAINTS.
--- NOTE | 2020-02-24 11:13 | EKG ---
[facility] [place] [address] ELECTROCARDIOGRAM REPORT Name: PRISCA INGRAMN [facility] #[facility] [id number] Admission: 02/24/20 Attend Phys: Hernan Zafar MD, Discharge: Date of : 31 Report #: [id number] THIS REPORT FOR: cc: Patrick Samuel Ronald D. DO Santiago, Patrick MD [facility] ~ THIS REPORT FOR: //name// [facility] Test Date: 2020-02-24 Test Time: 07:24:47 Pat Name: MATILDE INGRAM Department: Room: Gender: M Protohistorian: SBULJEN : 1930 Requested By: Hernan Zafar Order Number: [id number] MD: Fab Limon Measurements Intervals [place] Rate: 85 P: 49 MO: 157 QRS: -12 QRSD: 106 T: 67 QT: 392 QTc: 467 Interpretive Statements Sinus rhythm Probable left atrial enlargement LVH with secondary repolarization abnormality Inferior infarct, old Anterior infarct, old Compared to ECG 06/06/2007 18:12:31 Left ventricular hypertrophy now present Early repolarization now present Myocardial infarct finding now present Electronically Signed On 02-24-2020 11:13:47 CDT by Fab Limon [email or web address] <ELECTRONICALLY SIGNED> By: Fab Limon MD, FACTerrance 02/24/20 1113 3 3 Fab Limon MD, [facility] /EPI
--- NOTE | 2020-02-24 17:29 | CATHLAB ---
[facility] [place] [address] INVASIVE PROCEDURE REPORT Name: MATILDE INGRAM Room #: REG YARA Bruce#: [id number] Admission: 02/24/20 Attend Phys: Hernan Zafar MD, Discharge: Date of : 31 Report #: [id number] THIS REPORT FOR: cc: Patrick Samuel Ronald D. DO Mancuso, Gerald M. MD [facility] ~ APPROVED REPORT Study performed: 02/24/2020 10:28:37 Patient Details Patient Status: Out-Patient Room #: The patient is a 89 year-old male Event Personnel Hernan Zafar Manager Utilization Review, Terence Barrow RN, Yenni Mittal RN RN, Terrie Nelson RTR Donn Guerra Sherra RTR Monitor Procedures Performed Art Access - R femoral artery* Eduardo Access - R femoral vein Coronaries Angiography w/Rt Heart Cath 3162585 RHCWCOR Supravalvular Aortography Injection 2270201 ISVA Aortogram Abdominal Peripheral Angio 598680 Hemostasis w/ Mynx 62537 Initial Mod Sed Same Phys/QHP Gr5y 025387 90962 Mod Sed Same Phys/QHP Ea 137522 Indication Chest pain Procedure Narrative The Right Groin^ was infiltrated with subcutaneous anesthesia. A PINNACLE 6FR Sheath #[id number] sheath was inserted into the RFA^. Coronary angiography was performed using coronary diagnostic catheters. The right coronary system was accessed and visualized with a JR4 catheter. The left coronary system was accessed and visualized with a JL4 catheter. The left ventricle was accessed and visualized with a PIGTAIL catheter. Left ventriculogram was performed in 30 degree projection. An aortogram of the abdominal aorta was performed. The patient tolerated the procedure well and there were no complications associated with the procedure. There was no hematoma. Intraoperative Conscious Sedation Sedation start time: 1131 Case end Time: [facility] [place] [address] INVASIVE PROCEDURE REPORT Name: MATILDE INGRAM Room #: REG [facility]#: [id number] Admission: 02/24/20 Attend Phys: Hernan Zafar, Discharge: Date of : 31 Report #: [id number] 1204 Fentanyl 50 mcg Versed 1 mg Fluoro Time: 4.00 minutes Dose: DAP 7104.30 cGycm2 851 mGy Contrast Type and Amount: Visipaque 130 ml Hemodynamics The right atrial mean pressure is 5 mmHg. The right ventricular pressure is 46/-2 mmHg. The pulmonary artery pressure is 41/13 mmHg with a mean of 22 mmHg. The mean pulmonary capillary wedge pressure is 18 mmHg. The aortic pressure is 139/55 mmHg with a mean of 87 mmHg. The cardiac output using thermo method is 3.90 L/min. The cardiac index using thermo method is 2.00 L/min/m2. Conclusion #1. Successful right heart catheterization with cardiac output by thermodilution. See above hemodynamics. #2 supravalvular aortogram above a severely stenotic aortic valve reveals trivial aortic insufficiency and borderline dilatation of the aorta. #3 abdominal aorta is heavily calcified mildly ectatic no significant aneurysm or occlusive disease. Renal arteries appear to be patent. #4 Short left main heavily calcified giving rise to LAD and circumflex. #5 LAD heavily proximal calcification but no occlusive disease diffuse disease this wraps around the apex. No intervention indicated. #6 circumflex OM also heavily proximally calcified with mild irregularity nondominant #7 large dominant calcified and ectatic right coronary artery without significant occlusive disease 3040% proximal mid distal has a focal lesion in the 60 to 70% range does not appear to be flow-limiting. Recommendations and plan: Continue aggressive risk factor modification. The patient has severe aortic valve stenosis. He will be evaluated for TAVR. He will be recovered in holding and then discharged to home. <ELECTRONICALLY SIGNED> By: Hernan Zafar MD, FACC 02/24/201727 27 27 Hernan Zafar MD, FACC /INF
--- NOTE | 2020-02-25 10:53 | TEE ---
[facility] [place] [address] TRANSESOPHAGEAL ECHOCARDIOGRAM Name: MATILDE INGRAM Room #: REG YARA Bruce#: [id number] Admission: 02/24/20 Attend Phys: Hernan Zafar MD, Discharge: Date of : 31 Report #: [id number] THIS REPORT FOR: cc: Patrick Samuel Ronald D. DO Santiago, Patrick MD [facility] ~ APPROVED REPORT Study performed: 02/25/2020 06:50:11 EXAM: Transesophageal Echocardiogram Status: routine BSA: 1.94 HR: 83 bpm BP: 164/69 mmHg Rhythm: NSR Other Information Study Quality: GoodTechnically Limited Indications Aortic stenosis. Procedure After obtaining informed consent, patient underwent transesophageal echo in the [employer]. Type of Sedation : Conscious Sedation Sedation was administered by Nicole Khan/Yenni Simon. Sedation was achieved intravenously with: Versed (6) Fentanyl (25) The HARISH was performed with complications. Complication encountered: Dr. Limon encountered difficulty passing probe. Possible esophageal stricture. Throughout the procedure, the blood pressure, pulse oximetry, cardiac rhythm, and rate were monitored. The patient tolerated the procedure without adverse effects. Recovery from conscious sedation was uneventful and vital signs were stable. <Conclusion> Consent was obtained Patient mentioned occasional difficulty swallowing larger pieces of food. Overall able to swallow. [facility] [address] [address] TRANSESOPHAGEAL ECHOCARDIOGRAM Name: PRISCA INGRAMN Room #: REG CL Arabella#: [id number] Admission: 02/24/20 Attend Phys: Hernan Zafar, Discharge: Date of : 31 Report #: [id number] All questions were answered. Esophageal probe was introduced without difficulty. Unfortunate unable to advance the probe beyond 25-30 cm. Patient received a total of 6 mg of Versed, 25 mg of fentanyl. Esophageal probe was withdrawn without difficulty. Patient tolerated procedure well. I discussed the findings with the patient after the procedure. Clinical history and HARISH findings today suggestive of esophageal stricture. Fab Limon MD [facility] <ELECTRONICALLY SIGNED> By: Fab Limon MD, FACC 02/25/2044 3 3 Fab Limon MD, FACC /INF
== END | disposition home or self-care (01) ==
LOC: CATH 06:31
PROVIDERS: ATTEND Internal Medicine Cardiovascular Disease
DX: R07.9 Chest pain, unspecified (principal); I25.10 Atherosclerotic heart disease of native coronary artery without angina pectoris; I77.811 Abdominal aortic ectasia; I35.2 Nonrheumatic aortic (valve) stenosis with insufficiency; I10 Essential (primary) hypertension; E78.5 Hyperlipidemia, unspecified; I25.2 Old myocardial infarction; I73.9 Peripheral vascular disease, unspecified; E78.00 Pure hypercholesterolemia, unspecified; M19.90 Unspecified osteoarthritis, unspecified site; Z98.890 Other specified postprocedural states; Z79.899 Other long term (current) drug therapy

== ENCOUNTER → 2020-03-07 | Outpatient (CLI) | payer OTHER | LOC: HYPER 13:07 | PROVIDERS: ATTEND Emergency Medicine | DX: T87.81 Dehiscence of amputation stump (principal); I70.245 Atherosclerosis of native arteries of left leg with ulceration of other part of foot; L89.896 Pressure-induced deep tissue damage of other site; L97.522 Non-pressure chronic ulcer of other part of left foot with fat layer exposed; S90.122D Contusion of left lesser toe(s) without damage to nail, subsequent encounter; E78.00 Pure hypercholesterolemia, unspecified; H26.9 Unspecified cataract; I25.10 Atherosclerotic heart disease of native coronary artery without angina pectoris; I10 Essential (primary) hypertension; I25.2 Old myocardial infarction; Z79.01 Long term (current) use of anticoagulants; Z95.820 Peripheral vascular angioplasty status with implants and grafts; Y83.5 Amputation of limb(s) as the cause of abnormal reaction of the patient, or of later complication, without mention of misadventure at the time of the procedure ==

== ENCOUNTER → 2020-03-21 | Outpatient (CLI) | payer OTHER | LOC: HYPER 13:37 | PROVIDERS: ATTEND Emergency Medicine | DX: T87.81 Dehiscence of amputation stump (principal); I70.245 Atherosclerosis of native arteries of left leg with ulceration of other part of foot; L89.896 Pressure-induced deep tissue damage of other site; L97.522 Non-pressure chronic ulcer of other part of left foot with fat layer exposed; S90.122D Contusion of left lesser toe(s) without damage to nail, subsequent encounter; E78.00 Pure hypercholesterolemia, unspecified; H26.9 Unspecified cataract; I25.10 Atherosclerotic heart disease of native coronary artery without angina pectoris; I10 Essential (primary) hypertension; I25.2 Old myocardial infarction; Z79.01 Long term (current) use of anticoagulants; Z95.820 Peripheral vascular angioplasty status with implants and grafts; X58.XXXD Exposure to other specified factors, subsequent encounter; Y83.5 Amputation of limb(s) as the cause of abnormal reaction of the patient, or of later complication, without mention of misadventure at the time of the procedure ==

== ENCOUNTER → 2020-03-28 | Outpatient (CLI) | payer OTHER | LOC: HYPER 13:06 | PROVIDERS: ATTEND Emergency Medicine | DX: T87.81 Dehiscence of amputation stump (principal); I70.245 Atherosclerosis of native arteries of left leg with ulceration of other part of foot; L89.896 Pressure-induced deep tissue damage of other site; L97.522 Non-pressure chronic ulcer of other part of left foot with fat layer exposed; S90.122D Contusion of left lesser toe(s) without damage to nail, subsequent encounter; L84 Corns and callosities; E78.00 Pure hypercholesterolemia, unspecified; H26.9 Unspecified cataract; I25.10 Atherosclerotic heart disease of native coronary artery without angina pectoris; I10 Essential (primary) hypertension; I25.2 Old myocardial infarction; Z79.01 Long term (current) use of anticoagulants; Z95.820 Peripheral vascular angioplasty status with implants and grafts; X58.XXXD Exposure to other specified factors, subsequent encounter; Y83.5 Amputation of limb(s) as the cause of abnormal reaction of the patient, or of later complication, without mention of misadventure at the time of the procedure ==

== ENCOUNTER → 2020-04-04 | Outpatient (CLI) | payer OTHER | LOC: HYPER 09:33 | PROVIDERS: ATTEND Emergency Medicine | DX: I70.245 Atherosclerosis of native arteries of left leg with ulceration of other part of foot (principal); L89.896 Pressure-induced deep tissue damage of other site; L97.522 Non-pressure chronic ulcer of other part of left foot with fat layer exposed; E78.00 Pure hypercholesterolemia, unspecified; H26.9 Unspecified cataract; I25.10 Atherosclerotic heart disease of native coronary artery without angina pectoris; I10 Essential (primary) hypertension; I25.2 Old myocardial infarction; Z95.828 Presence of other vascular implants and grafts; Z79.01 Long term (current) use of anticoagulants ==

== ENCOUNTER → 2020-04-11 | Outpatient (CLI) | payer OTHER | LOC: HYPER 13:24 | PROVIDERS: ATTEND Emergency Medicine | DX: I70.245 Atherosclerosis of native arteries of left leg with ulceration of other part of foot (principal); L97.522 Non-pressure chronic ulcer of other part of left foot with fat layer exposed; L89.896 Pressure-induced deep tissue damage of other site; E78.00 Pure hypercholesterolemia, unspecified; H26.9 Unspecified cataract; I25.10 Atherosclerotic heart disease of native coronary artery without angina pectoris; I10 Essential (primary) hypertension; I25.2 Old myocardial infarction; Z79.01 Long term (current) use of anticoagulants; Z95.828 Presence of other vascular implants and grafts ==

== ENCOUNTER → 2020-04-18 | Outpatient (CLI) | payer OTHER | LOC: HYPER 10:49 | PROVIDERS: ATTEND Emergency Medicine | DX: I70.245 Atherosclerosis of native arteries of left leg with ulceration of other part of foot (principal); L89.896 Pressure-induced deep tissue damage of other site; L97.522 Non-pressure chronic ulcer of other part of left foot with fat layer exposed; I25.10 Atherosclerotic heart disease of native coronary artery without angina pectoris; E78.00 Pure hypercholesterolemia, unspecified; I10 Essential (primary) hypertension; H26.9 Unspecified cataract; I25.2 Old myocardial infarction; N40.0 Benign prostatic hyperplasia without lower urinary tract symptoms; Z79.01 Long term (current) use of anticoagulants; Z95.828 Presence of other vascular implants and grafts ==

== ENCOUNTER → 2020-04-25 | Outpatient (CLI) | payer OTHER | LOC: HYPER 14:13 | PROVIDERS: ATTEND Emergency Medicine | DX: I70.245 Atherosclerosis of native arteries of left leg with ulceration of other part of foot (principal); L89.896 Pressure-induced deep tissue damage of other site; L97.522 Non-pressure chronic ulcer of other part of left foot with fat layer exposed; I25.10 Atherosclerotic heart disease of native coronary artery without angina pectoris; E78.00 Pure hypercholesterolemia, unspecified; I10 Essential (primary) hypertension; H26.9 Unspecified cataract; I25.2 Old myocardial infarction; N40.0 Benign prostatic hyperplasia without lower urinary tract symptoms; Z79.01 Long term (current) use of anticoagulants; Z95.828 Presence of other vascular implants and grafts ==

== ENCOUNTER → 2020-05-02 | Outpatient (CLI) | payer OTHER | LOC: HYPER 13:59 | PROVIDERS: ATTEND Emergency Medicine | DX: I70.245 Atherosclerosis of native arteries of left leg with ulceration of other part of foot (principal); L89.896 Pressure-induced deep tissue damage of other site; L97.522 Non-pressure chronic ulcer of other part of left foot with fat layer exposed; E78.00 Pure hypercholesterolemia, unspecified; I25.10 Atherosclerotic heart disease of native coronary artery without angina pectoris; I10 Essential (primary) hypertension; H26.9 Unspecified cataract; I25.2 Old myocardial infarction; N40.0 Benign prostatic hyperplasia without lower urinary tract symptoms; Z95.828 Presence of other vascular implants and grafts ==

== ENCOUNTER → 2020-05-10 | Outpatient (CLI) | payer OTHER | LOC: HYPER 13:21 | PROVIDERS: ATTEND Emergency Medicine | DX: I70.245 Atherosclerosis of native arteries of left leg with ulceration of other part of foot (principal); L89.896 Pressure-induced deep tissue damage of other site; L97.522 Non-pressure chronic ulcer of other part of left foot with fat layer exposed; E78.00 Pure hypercholesterolemia, unspecified; I25.10 Atherosclerotic heart disease of native coronary artery without angina pectoris; I10 Essential (primary) hypertension; H26.9 Unspecified cataract; I25.2 Old myocardial infarction; N40.0 Benign prostatic hyperplasia without lower urinary tract symptoms; Z95.828 Presence of other vascular implants and grafts; Z79.01 Long term (current) use of anticoagulants ==

== ENCOUNTER → 2020-05-17 | Outpatient (CLI) | payer OTHER | LOC: HYPER 13:35 | PROVIDERS: ATTEND Emergency Medicine Emergency Medical Services | DX: I70.245 Atherosclerosis of native arteries of left leg with ulceration of other part of foot (principal); L89.896 Pressure-induced deep tissue damage of other site; L97.522 Non-pressure chronic ulcer of other part of left foot with fat layer exposed; M86.172 Other acute osteomyelitis, left ankle and foot; E78.00 Pure hypercholesterolemia, unspecified; I25.10 Atherosclerotic heart disease of native coronary artery without angina pectoris; I10 Essential (primary) hypertension; H26.9 Unspecified cataract; I25.2 Old myocardial infarction; N40.0 Benign prostatic hyperplasia without lower urinary tract symptoms; Z95.828 Presence of other vascular implants and grafts; Z79.01 Long term (current) use of anticoagulants ==

== ENCOUNTER → 2020-05-24 | Outpatient (CLI) | payer OTHER ==
[~2020-05-24] MED LIST changes: +BUPROPION XL150 MG PO; +LIPITOR40 MG PO; +NORVASC5 MG PO; +OXYCODONE HCL10 MG PO
== END ==
LOC: LAB 13:58
PROVIDERS: ATTEND Orthopaedic Surgery
DX: Z01.812 Encounter for preprocedural laboratory examination (principal); Z20.828 Contact with and (suspected) exposure to other viral communicable diseases

== ENCOUNTER 2020-05-29 07:37 | Day surgery (SDC) | payer OTHER ==
[~2020-05-29] VITALS: Ht 177.8 cm; Wt 71.7 kg
[2020-05-29 08:40] VITALS: BP 168/86
[2020-05-29] MEDS ORDERED: OXYCODONE HCL10 MG PO (10:37)
[2020-05-29 13:10] VITALS: BP 136/78
[2020-05-29 13:30] VITALS: BP 131/62
[2020-05-29 14:00] VITALS: BP 127/59
[2020-05-29 14:40] VITALS: BP 114/47
--- NOTE | 2020-05-29 16:02 | NUR ---
assumed care at 1300. pt is a&o x4. pt complains of pain on his toes with some tingling. pt was given hydrocodone first and pain is still being pain after giving po medication. gave pt morphine at 1545. will continue to monitor. iv is intact and shows no signs of redness or swelling. scd hose are in place. roxann dressing is intact with joe wrap. vss. call light within reach. heart and lungs sounds are regular and clear.
[2020-05-29 18:56] VITALS: BP 146/60
--- NOTE | 2020-05-30 01:32 | NUR ---
CONTINUE CARE FROM OUTGOING RN @2300. PT A&OX4. C/O PAIN IN LLE. MANAGED BY PO AND IV PAIN MEDS. PT UP WITH SBA TO USE THE URINAL. NWB ON LLE. FALL PREC IN PLACE. CALL LIGHT AT REACH. WILL CONT WITH POC TILL EOS.
[2020-05-30 03:22] VITALS: BP 143/65
[2020-05-30 08:05] VITALS: BP 161/77
[2020-05-30 09:47] VITALS: BP 161/77
[2020-05-30 09:59] VITALS: BP 161/77
--- NOTE | 2020-05-30 12:30 | NUR ---
PT ASSESSED AT START OF SHIFT. PT DOING WELL. USE ROLLER SCOOTER W/ THERAPY AND DID WELL. WAS APPROVED TO USE HIS HEEL TO TAKE STAIRS WHEN NEEDED. NEEDING PAIN PILL Q4HRS TO HELP PAIN. TEACHING DONE W/ AND PT REGARDING HOME CARE. TO F/U W/ K LUCÍA 06/05. DISCHARGED PER W/C AT THIS TIME- WALKER TO BE DELIVERED TO HOME.
--- NOTE | 2020-05-30 13:09 | NUR ---
ASSESSMENT: CM REVIEWED CHART AND SPOKE WITH PT. PT IS HERE S/P LEFT 5TH RAY AMPUTATION. PT REPORTS LIVING IN A HOUSE WITH HIS . PT HAS ABOUT 3 STEPS TO ENTER THE HOME AND ALL HIS NEEDS ARE ON THE MAIN LEVEL. PT REPORTS HAVING A KNEE SCOOTER AT HOME. PHYSICAL THERAPY WORKED WITH PATIENT AND ALSO RECOMMENDING A WALKER. PT HAS NO PREFERENCE OF [employer]. [employer] IS OUT OF NETWORK. TERESSA SPOKE WITH [facility] WHO REPORTS THEY CAN PROVIDE PT WITH A WALKER BUT HE HAS A COPAY OF 46 DOLLARS. TERESSA WENT TO DISCUSS WITH PATIENT BUT HE ALREADY LEFT PRIOR TO WALKER BEING DELIVERED. [facility] STATING THEY CAN DELIVER TO PTS HOME AND LEFT A VM WITH PT. PT HAD [facility] PRIOR TO ADMISSION AND REPORTS HE NO LONGER FEELS HE NEEDS HH SINCE TOE WAS AMPUTATED. TERESSA NOTIFIED ATTENDING. PT DISCHARGED HOME WITH .
--- NOTE | 2020-05-31 14:07 | PATH ---
[facility] [address] [place] [address] PATHOLOGY RPT PROCEDURE Name: ISSAC INGRAM Room #: DEP [facility] M.R.#: [id number] Admission: 05/29/20 Date of : 31 Discharge: 05/30/20 Report #: [id number] Path Case #: [id number] LCA Accession Number: [id number] . 01 Material submitted: . foot - LEFT FOOT 5TH RAY AMPUTATION. Modifiers: left . 01 Clinical history: . GANGRENE NOT ELSEWHERE CLASSFIED AMPUTATION . 01 Amended report: . This is an amended report due to a clerical error. There is no change in the diagnosis. The gross description needed patient's name and specimen labeling added. . 02 Diagnosis: Toe, left foot fifth ray, amputation: - Bone from mid-toe showing degenerative and reparative changes, history of gangrene provided. - Margin of bone viable and unremarkable. (IUV/db; 05/30/2020) LBQ 05/30/2020 1354 Local . 02 Electronically signed: . Nadine Castillo MD, Pathologist NPI- [id number] . 01 Gross description: . The specimen is received in formalin, labeled "Issac Handley, left foot transmetatarsal amputation". Received is an amputated digit with an attached metatarsal measuring 9.3 x 2.0 x 1.8 cm in greatest dimensions. The bone margin of the metatarsal is blunt in appearance, consistent with transection, and is inked black. The nail is present displaying a pale hawley and slightly flaky appearance. The epidermal surface is pale hawley and wrinkled in appearance with no grossly distinct nodules or lesions. The specimen is submitted representatively as follows: . A1 horizontal cross-section through distal aspect of toe, following decalcification A2 longitudinal cross-section through bone margin, following decalcification. (CAA; 05/29/2020) [facility] 05/30/2020 1558 Local . 02 Pathologist provided ICD-10: M89.8X7 [place] [address] PATHOLOGY RPT PROCEDURE Name: ISSAC INGRAM Room #: DEP [facility] Teo#: [id number] Admission: 05/29/20 Date of : 31 Discharge: 05/30/20 Report #: [id number] Path Case #: [id number] . 02 CPT . 914801, [id number] Specimen Comment: A courtesy copy of this report has been sent to [phone] Specimen Comment: [phone] Specimen Comment: Report sent to / DR POZO Performed at: [address], [place] [id number] MD Héctor Mcdonald MD Phone: [phone] Performed at: [address] [id number] MD Nadine Castillo MD Phone: [phone]
--- NOTE | 2020-06-01 21:07 | O ---
[facility] [place] [address] OPERATIVE REPORT Name: MATILDE INGRAM Room #: [facility]o#: [id number] Admission: 05/29/20 Attend Phys: Kurt Moseley MD Discharge: 05/30/20 Date of : 31 Report #: [id number] THIS REPORT FOR: cc: Patrick Samuel Ronald D. DO Abraham, Scott M. MD ~ DATE OF SERVICE: 05/29/2020 PREOPERATIVE DIAGNOSIS: Left foot fifth metatarsal osteomyelitis. POSTOPERATIVE DIAGNOSIS: Left foot fifth metatarsal osteomyelitis. PROCEDURE: Left foot fifth ray amputation. SURGEON: Kurt Moseley MD. SLIP COVER CUTTER: Donna Kitchen PA-C. INDICATIONS FOR SLIP COVER CUTTER: Retraction and manipulation of the foot was required. This was afforded to me by my diver assistant. ANESTHESIA: Local ankle nerve block with IV sedation. ESTIMATED BLOOD LOSS: 25 mL. SPECIMENS: The fifth metatarsal and fifth toe were sent to pathology. CONDITION UPON LEAVING THE OPERATING ROOM: Stable. INDICATIONS FOR PROCEDURE: The patient is an 89-year-old gentleman who has had a chronic wound over his left fifth metatarsal head. He had an MRI scan shown to have osteomyelitis of the fifth metatarsal, which is likely the source of the ulceration. After discussion with him, he elected for fifth ray amputation. DESCRIPTION OF PROCEDURE: Risks, benefits, alternatives, complications were discussed in detail with the patient including but not limited to risk of anesthesia, risk of damage to nerves, arteries, blood vessels, risk for continued infection and need for higher level amputation. Informed consent was obtained from the patient. Left foot was appropriately marked in the preoperative holding area, ankle nerve block was placed by anesthesia in the holding area. He was brought to the operating room, laid in the supine position on the operating room table. IV sedation was administered by Anesthesia. Left lower extremity was prepped and draped in normal sterile fashion. Timeout was performed properly identifying the patient and procedure as well as the instrumentation. All in the operating room were in agreement. No tourniquet [address] [address] OPERATIVE REPORT Name: PRISCA INGRAMN Room #: [facility] Teo#: [id number] Admission: 05/29/20 Attend Phys: Kurt Moseley MD Discharge: 05/30/20 Date of : 31 Report #: [id number] was used for this and an incision over the lateral foot was made with 10 blade around the small toe incorporating the ulcerative wound to excise it through the skin. Once through the skin, we used Bovie to dissect down to the metatarsal. Bovie cautery was used to dissect dorsally and plantarly along the fifth toe. A small sagittal saw was then used to cut the fifth metatarsal at its base leaving the base intact and the toe and fifth metatarsal were removed. This area was thoroughly irrigated with normal saline. The incision was closed with 3-0 nylon and a KAT dressing was applied. The patient tolerated this procedure well and went to recovery room under care of anesthesia postoperatively. <ELECTRONICALLY SIGNED> By: Kurt Moseley MD 06/01/20 2107 1142 1157 Kurt Moseley MD /nt
== END 2020-05-30 12:40 | disposition home or self-care (01) ==
LOC: OR 07:37 → TBA 07:46 → OR 12:03 → 4S 13:04 → OR 13:10
PROVIDERS: ATTEND Orthopaedic Surgery
DX: M86.8X7 Other osteomyelitis, ankle and foot (principal); I10 Essential (primary) hypertension; I25.10 Atherosclerotic heart disease of native coronary artery without angina pectoris; E78.5 Hyperlipidemia, unspecified; M19.90 Unspecified osteoarthritis, unspecified site; Z98.890 Other specified postprocedural states; Z79.899 Other long term (current) drug therapy; Z98.42 Cataract extraction status, left eye; Z98.41 Cataract extraction status, right eye; Z87.891 Personal history of nicotine dependence
CPT/HCPCS: 10102; 50010; 50101; 50386; 50951; 56527; 57091; 57254; 62110; 62850; 70005

== ENCOUNTER → 2020-06-14 | Outpatient (CLI) | payer OTHER | LOC: HYPER 11:05 | PROVIDERS: ATTEND Emergency Medicine Emergency Medical Services | DX: T81.89XD Other complications of procedures, not elsewhere classified, subsequent encounter (principal); L03.031 Cellulitis of right toe; I70.245 Atherosclerosis of native arteries of left leg with ulceration of other part of foot; L89.896 Pressure-induced deep tissue damage of other site; L97.522 Non-pressure chronic ulcer of other part of left foot with fat layer exposed; R60.0 Localized edema; M86.172 Other acute osteomyelitis, left ankle and foot; E78.00 Pure hypercholesterolemia, unspecified; H26.9 Unspecified cataract; I25.10 Atherosclerotic heart disease of native coronary artery without angina pectoris; I10 Essential (primary) hypertension; I25.2 Old myocardial infarction; N40.0 Benign prostatic hyperplasia without lower urinary tract symptoms; Z95.828 Presence of other vascular implants and grafts; Z79.01 Long term (current) use of anticoagulants; Y83.8 Other surgical procedures as the cause of abnormal reaction of the patient, or of later complication, without mention of misadventure at the time of the procedure ==

== ENCOUNTER → 2020-06-20 | Outpatient (CLI) | payer OTHER | LOC: HYPER 14:44 | PROVIDERS: ATTEND Emergency Medicine | DX: I70.245 Atherosclerosis of native arteries of left leg with ulceration of other part of foot (principal); L89.896 Pressure-induced deep tissue damage of other site; L97.522 Non-pressure chronic ulcer of other part of left foot with fat layer exposed; I70.235 Atherosclerosis of native arteries of right leg with ulceration of other part of foot; L97.512 Non-pressure chronic ulcer of other part of right foot with fat layer exposed; L03.115 Cellulitis of right lower limb; M86.172 Other acute osteomyelitis, left ankle and foot; R60.0 Localized edema; I25.10 Atherosclerotic heart disease of native coronary artery without angina pectoris; E78.00 Pure hypercholesterolemia, unspecified; I10 Essential (primary) hypertension; H26.9 Unspecified cataract; I25.2 Old myocardial infarction; N40.0 Benign prostatic hyperplasia without lower urinary tract symptoms; Z79.01 Long term (current) use of anticoagulants; Z95.828 Presence of other vascular implants and grafts ==

== ENCOUNTER → 2020-06-27 | Outpatient (CLI) | payer OTHER | LOC: HYPER 09:24 | PROVIDERS: ATTEND Emergency Medicine | DX: T81.89XD Other complications of procedures, not elsewhere classified, subsequent encounter (principal); I70.245 Atherosclerosis of native arteries of left leg with ulceration of other part of foot; L89.896 Pressure-induced deep tissue damage of other site; L97.522 Non-pressure chronic ulcer of other part of left foot with fat layer exposed; I70.235 Atherosclerosis of native arteries of right leg with ulceration of other part of foot; L97.512 Non-pressure chronic ulcer of other part of right foot with fat layer exposed; L03.115 Cellulitis of right lower limb; M86.172 Other acute osteomyelitis, left ankle and foot; R60.0 Localized edema; I25.10 Atherosclerotic heart disease of native coronary artery without angina pectoris; E78.00 Pure hypercholesterolemia, unspecified; I10 Essential (primary) hypertension; H26.9 Unspecified cataract; I25.2 Old myocardial infarction; N40.0 Benign prostatic hyperplasia without lower urinary tract symptoms; Z79.01 Long term (current) use of anticoagulants; Z95.828 Presence of other vascular implants and grafts; Y83.8 Other surgical procedures as the cause of abnormal reaction of the patient, or of later complication, without mention of misadventure at the time of the procedure ==

== ENCOUNTER → 2020-07-05 | Outpatient (CLI) | payer OTHER | LOC: HYPER 14:02 | PROVIDERS: ATTEND Emergency Medicine | DX: T81.89XD Other complications of procedures, not elsewhere classified, subsequent encounter (principal); I70.245 Atherosclerosis of native arteries of left leg with ulceration of other part of foot; L89.896 Pressure-induced deep tissue damage of other site; L97.522 Non-pressure chronic ulcer of other part of left foot with fat layer exposed; I70.235 Atherosclerosis of native arteries of right leg with ulceration of other part of foot; L97.512 Non-pressure chronic ulcer of other part of right foot with fat layer exposed; L03.115 Cellulitis of right lower limb; M86.172 Other acute osteomyelitis, left ankle and foot; R60.0 Localized edema; E78.00 Pure hypercholesterolemia, unspecified; I25.10 Atherosclerotic heart disease of native coronary artery without angina pectoris; I10 Essential (primary) hypertension; H26.9 Unspecified cataract; I25.2 Old myocardial infarction; N40.0 Benign prostatic hyperplasia without lower urinary tract symptoms; Z79.01 Long term (current) use of anticoagulants; Z95.828 Presence of other vascular implants and grafts; Y83.8 Other surgical procedures as the cause of abnormal reaction of the patient, or of later complication, without mention of misadventure at the time of the procedure ==

== ENCOUNTER → 2020-07-18 | Outpatient (CLI) | payer OTHER | LOC: HYPER 13:56 | PROVIDERS: ATTEND Emergency Medicine | DX: T87.89 Other complications of amputation stump (principal); I70.245 Atherosclerosis of native arteries of left leg with ulceration of other part of foot; L89.896 Pressure-induced deep tissue damage of other site; L97.522 Non-pressure chronic ulcer of other part of left foot with fat layer exposed; I70.235 Atherosclerosis of native arteries of right leg with ulceration of other part of foot; L97.512 Non-pressure chronic ulcer of other part of right foot with fat layer exposed; I70.25 Atherosclerosis of native arteries of other extremities with ulceration; L03.031 Cellulitis of right toe; M86.172 Other acute osteomyelitis, left ankle and foot; R60.0 Localized edema; L03.115 Cellulitis of right lower limb; I25.10 Atherosclerotic heart disease of native coronary artery without angina pectoris; E78.00 Pure hypercholesterolemia, unspecified; I10 Essential (primary) hypertension; H26.9 Unspecified cataract; I25.2 Old myocardial infarction; N40.0 Benign prostatic hyperplasia without lower urinary tract symptoms; Z79.01 Long term (current) use of anticoagulants; Z79.899 Other long term (current) drug therapy; Z95.828 Presence of other vascular implants and grafts; Y83.5 Amputation of limb(s) as the cause of abnormal reaction of the patient, or of later complication, without mention of misadventure at the time of the procedure ==

== ENCOUNTER → 2020-07-25 | Outpatient (CLI) | payer OTHER | LOC: HYPER 10:27 | PROVIDERS: ATTEND Emergency Medicine | DX: T87.89 Other complications of amputation stump (principal); I70.245 Atherosclerosis of native arteries of left leg with ulceration of other part of foot; L89.896 Pressure-induced deep tissue damage of other site; L97.522 Non-pressure chronic ulcer of other part of left foot with fat layer exposed; I70.235 Atherosclerosis of native arteries of right leg with ulceration of other part of foot; L97.512 Non-pressure chronic ulcer of other part of right foot with fat layer exposed; L03.115 Cellulitis of right lower limb; L03.031 Cellulitis of right toe; M86.172 Other acute osteomyelitis, left ankle and foot; R60.0 Localized edema; I25.10 Atherosclerotic heart disease of native coronary artery without angina pectoris; E78.00 Pure hypercholesterolemia, unspecified; I10 Essential (primary) hypertension; H26.9 Unspecified cataract; I25.2 Old myocardial infarction; N40.0 Benign prostatic hyperplasia without lower urinary tract symptoms; Z79.01 Long term (current) use of anticoagulants; Z79.899 Other long term (current) drug therapy; Z95.828 Presence of other vascular implants and grafts; Y83.5 Amputation of limb(s) as the cause of abnormal reaction of the patient, or of later complication, without mention of misadventure at the time of the procedure ==

== ENCOUNTER → 2020-08-03 | Outpatient (CLI) | payer OTHER | LOC: HYPER 09:25 | PROVIDERS: ATTEND Emergency Medicine | DX: T81.89XD Other complications of procedures, not elsewhere classified, subsequent encounter (principal); L03.031 Cellulitis of right toe; L89.896 Pressure-induced deep tissue damage of other site; I70.245 Atherosclerosis of native arteries of left leg with ulceration of other part of foot; L97.522 Non-pressure chronic ulcer of other part of left foot with fat layer exposed; I70.235 Atherosclerosis of native arteries of right leg with ulceration of other part of foot; L97.512 Non-pressure chronic ulcer of other part of right foot with fat layer exposed; I70.25 Atherosclerosis of native arteries of other extremities with ulceration; L03.115 Cellulitis of right lower limb; M86.172 Other acute osteomyelitis, left ankle and foot; R60.0 Localized edema; I25.10 Atherosclerotic heart disease of native coronary artery without angina pectoris; E78.00 Pure hypercholesterolemia, unspecified; I10 Essential (primary) hypertension; H26.9 Unspecified cataract; I25.2 Old myocardial infarction; N40.0 Benign prostatic hyperplasia without lower urinary tract symptoms; Z79.01 Long term (current) use of anticoagulants; Z79.899 Other long term (current) drug therapy; Z95.828 Presence of other vascular implants and grafts; Y83.8 Other surgical procedures as the cause of abnormal reaction of the patient, or of later complication, without mention of misadventure at the time of the procedure ==

== ENCOUNTER → 2020-08-08 | Outpatient (CLI) | payer OTHER | LOC: HYPER 10:38 | PROVIDERS: ATTEND Emergency Medicine | DX: T81.89XD Other complications of procedures, not elsewhere classified, subsequent encounter (principal); L03.031 Cellulitis of right toe; L89.896 Pressure-induced deep tissue damage of other site; I70.245 Atherosclerosis of native arteries of left leg with ulceration of other part of foot; L97.522 Non-pressure chronic ulcer of other part of left foot with fat layer exposed; I70.235 Atherosclerosis of native arteries of right leg with ulceration of other part of foot; L97.512 Non-pressure chronic ulcer of other part of right foot with fat layer exposed; I70.25 Atherosclerosis of native arteries of other extremities with ulceration; L03.115 Cellulitis of right lower limb; M86.172 Other acute osteomyelitis, left ankle and foot; R60.0 Localized edema; I25.10 Atherosclerotic heart disease of native coronary artery without angina pectoris; E78.00 Pure hypercholesterolemia, unspecified; I10 Essential (primary) hypertension; H26.9 Unspecified cataract; I25.2 Old myocardial infarction; N40.0 Benign prostatic hyperplasia without lower urinary tract symptoms; Z79.01 Long term (current) use of anticoagulants; Z79.899 Other long term (current) drug therapy; Z95.828 Presence of other vascular implants and grafts; Y83.8 Other surgical procedures as the cause of abnormal reaction of the patient, or of later complication, without mention of misadventure at the time of the procedure ==

== ENCOUNTER → 2020-08-16 | Outpatient (CLI) | payer OTHER | LOC: HYPER 12:50 | PROVIDERS: ATTEND Emergency Medicine Emergency Medical Services | DX: T81.89XD Other complications of procedures, not elsewhere classified, subsequent encounter (principal); I70.245 Atherosclerosis of native arteries of left leg with ulceration of other part of foot; L97.522 Non-pressure chronic ulcer of other part of left foot with fat layer exposed; I70.235 Atherosclerosis of native arteries of right leg with ulceration of other part of foot; L97.512 Non-pressure chronic ulcer of other part of right foot with fat layer exposed; L89.896 Pressure-induced deep tissue damage of other site; L03.115 Cellulitis of right lower limb; M86.172 Other acute osteomyelitis, left ankle and foot; R60.0 Localized edema; I25.10 Atherosclerotic heart disease of native coronary artery without angina pectoris; E78.00 Pure hypercholesterolemia, unspecified; I10 Essential (primary) hypertension; H26.9 Unspecified cataract; I25.2 Old myocardial infarction; N40.0 Benign prostatic hyperplasia without lower urinary tract symptoms; Z79.01 Long term (current) use of anticoagulants; Z95.828 Presence of other vascular implants and grafts; Y83.8 Other surgical procedures as the cause of abnormal reaction of the patient, or of later complication, without mention of misadventure at the time of the procedure ==

== ENCOUNTER → 2020-08-31 | Outpatient (CLI) | payer OTHER | LOC: HYPER 10:27 | PROVIDERS: ATTEND Emergency Medicine | DX: T81.89XD Other complications of procedures, not elsewhere classified, subsequent encounter (principal); I70.245 Atherosclerosis of native arteries of left leg with ulceration of other part of foot; L97.522 Non-pressure chronic ulcer of other part of left foot with fat layer exposed; I70.235 Atherosclerosis of native arteries of right leg with ulceration of other part of foot; L97.512 Non-pressure chronic ulcer of other part of right foot with fat layer exposed; L89.896 Pressure-induced deep tissue damage of other site; L03.115 Cellulitis of right lower limb; M86.172 Other acute osteomyelitis, left ankle and foot; R60.0 Localized edema; I25.10 Atherosclerotic heart disease of native coronary artery without angina pectoris; E78.00 Pure hypercholesterolemia, unspecified; I10 Essential (primary) hypertension; H26.9 Unspecified cataract; I25.2 Old myocardial infarction; N40.0 Benign prostatic hyperplasia without lower urinary tract symptoms; Z79.01 Long term (current) use of anticoagulants; Z95.828 Presence of other vascular implants and grafts; Y83.8 Other surgical procedures as the cause of abnormal reaction of the patient, or of later complication, without mention of misadventure at the time of the procedure ==

== ENCOUNTER → 2020-09-08 | Outpatient (CLI) | payer OTHER | LOC: HYPER 08:15 | PROVIDERS: ATTEND Emergency Medicine | DX: T81.89XD Other complications of procedures, not elsewhere classified, subsequent encounter (principal); I70.245 Atherosclerosis of native arteries of left leg with ulceration of other part of foot; L89.896 Pressure-induced deep tissue damage of other site; L97.522 Non-pressure chronic ulcer of other part of left foot with fat layer exposed; I70.235 Atherosclerosis of native arteries of right leg with ulceration of other part of foot; L97.512 Non-pressure chronic ulcer of other part of right foot with fat layer exposed; L03.115 Cellulitis of right lower limb; M86.172 Other acute osteomyelitis, left ankle and foot; R60.0 Localized edema; I25.10 Atherosclerotic heart disease of native coronary artery without angina pectoris; E78.00 Pure hypercholesterolemia, unspecified; I10 Essential (primary) hypertension; H26.9 Unspecified cataract; I25.2 Old myocardial infarction; N40.0 Benign prostatic hyperplasia without lower urinary tract symptoms; Z79.01 Long term (current) use of anticoagulants; Z79.899 Other long term (current) drug therapy; Z95.828 Presence of other vascular implants and grafts; Z89.422 Acquired absence of other left toe(s); Y83.8 Other surgical procedures as the cause of abnormal reaction of the patient, or of later complication, without mention of misadventure at the time of the procedure ==

== ENCOUNTER → 2020-09-15 | Outpatient (CLI) | payer OTHER | LOC: HYPER 09:51 | PROVIDERS: ATTEND Emergency Medicine Emergency Medical Services | DX: T81.89XD Other complications of procedures, not elsewhere classified, subsequent encounter (principal); I70.245 Atherosclerosis of native arteries of left leg with ulceration of other part of foot; L89.896 Pressure-induced deep tissue damage of other site; L97.522 Non-pressure chronic ulcer of other part of left foot with fat layer exposed; I70.235 Atherosclerosis of native arteries of right leg with ulceration of other part of foot; L97.512 Non-pressure chronic ulcer of other part of right foot with fat layer exposed; L03.115 Cellulitis of right lower limb; B95.62 Methicillin resistant Staphylococcus aureus infection as the cause of diseases classified elsewhere; E11.69 Type 2 diabetes mellitus with other specified complication; M86.172 Other acute osteomyelitis, left ankle and foot; I25.10 Atherosclerotic heart disease of native coronary artery without angina pectoris; R60.0 Localized edema; E78.00 Pure hypercholesterolemia, unspecified; I10 Essential (primary) hypertension; H26.9 Unspecified cataract; I25.2 Old myocardial infarction; N40.0 Benign prostatic hyperplasia without lower urinary tract symptoms; Z79.01 Long term (current) use of anticoagulants; Z79.899 Other long term (current) drug therapy; Z95.828 Presence of other vascular implants and grafts; Y83.8 Other surgical procedures as the cause of abnormal reaction of the patient, or of later complication, without mention of misadventure at the time of the procedure ==

== ENCOUNTER 2020-09-18 11:05 | Observation (INO) | payer OTHER ==
[~2020-09-18] VITALS: Ht 177.8 cm; Wt 67.1 kg
[2020-09-18] VITALS (10 sets, daily range): BP systolic 102–192; BP diastolic 48–68
[2020-09-18] MEDS ORDERED: ZOCOR 10 MG TAB10 M1 PO (12:23)
[2020-09-18] MEDS ORDERED: CEFPODOXIME PR200 M1 PO (12:25)
[2020-09-18] MEDS ORDERED: ZETIA10 MG PO (12:26)
[2020-09-18 12:47] LABS: HEMATOCRIT 36.5 % (42.0-52.0); HEMOGLOBIN 12.3 gm/dL (14.0-18.0); MCH 33.4 pg (26.0-34.0); MCHC 33.6 g/dL (28.0-37.0); MCV 99.4 fL (80.0-100.0); RBC 3.67 mil/uL (4.50-6.00); RDW 15.5 % (10.5-14.5); WBC 9.6 thou/uL (4.0-11.0)
[2020-09-18 12:51] LABS: CALCIUM 8.7 mg/dL (8.5-10.1); CREATININE 1.3 mg/dL (0.7-1.3); POTASSIUM 4.3 mmol/L (3.5-5.1)
--- NOTE | 2020-09-18 18:30 | NUR ---
PT. ARRIVED AT FLOOR AFTER 1500; PT. AOX4; NO C/O PAIN; EDUCATED ABOUT BED REST AND KEEPING L. LEG STRAIGHT; HOLDING PRESSURE IF COUGHING OR SNEEZING; ST. UNDERSTANDING; NEEDED TO BE REMAINED FROM TIME TO TIME; IV FLUIDS STARTED; URINAL PROVIDED; L. GROIN INCISION C/D/I; NO NOTICED HEMATOMA THROUGH BED REST; OFF OF BED REST AT 1833; WILL AMBULATE AND D/C HOME PER ORDER; SR ON THE MONITOR; VS WNL;
== END 2020-09-18 19:06 | disposition home or self-care (01) ==
LOC: CATH 11:05 → 2N 15:52
PROVIDERS: ADMIT Nuclear Medicine Nuclear Cardiology; ATTEND Nuclear Medicine Nuclear Cardiology
DX: I70.201 Unspecified atherosclerosis of native arteries of extremities, right leg (principal); I25.10 Atherosclerotic heart disease of native coronary artery without angina pectoris; I70.1 Atherosclerosis of renal artery; I10 Essential (primary) hypertension; L97.919 Non-pressure chronic ulcer of unspecified part of right lower leg with unspecified severity; Z79.899 Other long term (current) drug therapy
CPT/HCPCS: 20063

== ENCOUNTER → 2020-10-02 | Outpatient (CLI) | payer OTHER ==
[~2020-10-02] MED LIST changes: +CEFPODOXIME PR200 M1 PO; +ZOCOR 10 MG TAB10 M1 PO
== END ==
LOC: SJCVCIMAG 11:03
PROVIDERS: ATTEND Nuclear Medicine Nuclear Cardiology
DX: I08.0 Rheumatic disorders of both mitral and aortic valves (principal); I25.10 Atherosclerotic heart disease of native coronary artery without angina pectoris; I73.9 Peripheral vascular disease, unspecified; Z95.2 Presence of prosthetic heart valve

== ENCOUNTER → 2020-10-04 | Outpatient (CLI) | payer OTHER | LOC: HYPER 08:28 | PROVIDERS: ATTEND Emergency Medicine | DX: T81.89XD Other complications of procedures, not elsewhere classified, subsequent encounter (principal); I70.245 Atherosclerosis of native arteries of left leg with ulceration of other part of foot; L89.896 Pressure-induced deep tissue damage of other site; L97.522 Non-pressure chronic ulcer of other part of left foot with fat layer exposed; I70.235 Atherosclerosis of native arteries of right leg with ulceration of other part of foot; L97.512 Non-pressure chronic ulcer of other part of right foot with fat layer exposed; L03.115 Cellulitis of right lower limb; L84 Corns and callosities; B95.62 Methicillin resistant Staphylococcus aureus infection as the cause of diseases classified elsewhere; M86.172 Other acute osteomyelitis, left ankle and foot; I25.10 Atherosclerotic heart disease of native coronary artery without angina pectoris; R60.0 Localized edema; E78.00 Pure hypercholesterolemia, unspecified; I10 Essential (primary) hypertension; H26.9 Unspecified cataract; I25.2 Old myocardial infarction; N40.0 Benign prostatic hyperplasia without lower urinary tract symptoms; Z79.01 Long term (current) use of anticoagulants; Z95.828 Presence of other vascular implants and grafts; Y83.8 Other surgical procedures as the cause of abnormal reaction of the patient, or of later complication, without mention of misadventure at the time of the procedure ==

== ENCOUNTER → 2020-10-09 | Outpatient (CLI) | payer OTHER | LOC: SJCVC 12:17 | PROVIDERS: ATTEND Internal Medicine Cardiovascular Disease | DX: I35.0 Nonrheumatic aortic (valve) stenosis (principal); I10 Essential (primary) hypertension; E78.00 Pure hypercholesterolemia, unspecified; I73.9 Peripheral vascular disease, unspecified; I65.23 Occlusion and stenosis of bilateral carotid arteries; I25.10 Atherosclerotic heart disease of native coronary artery without angina pectoris; R53.83 Other fatigue; R06.00 Dyspnea, unspecified; Z95.2 Presence of prosthetic heart valve; Z87.891 Personal history of nicotine dependence; Z72.89 Other problems related to lifestyle; Z79.82 Long term (current) use of aspirin; Z79.899 Other long term (current) drug therapy ==

== ENCOUNTER → 2020-10-11 | Outpatient (CLI) | payer OTHER | LOC: HYPER 08:37 | PROVIDERS: ATTEND Emergency Medicine | DX: T81.89XD Other complications of procedures, not elsewhere classified, subsequent encounter (principal); L89.896 Pressure-induced deep tissue damage of other site; I70.235 Atherosclerosis of native arteries of right leg with ulceration of other part of foot; L97.512 Non-pressure chronic ulcer of other part of right foot with fat layer exposed; I70.245 Atherosclerosis of native arteries of left leg with ulceration of other part of foot; L97.522 Non-pressure chronic ulcer of other part of left foot with fat layer exposed; L03.115 Cellulitis of right lower limb; L84 Corns and callosities; B95.62 Methicillin resistant Staphylococcus aureus infection as the cause of diseases classified elsewhere; M86.172 Other acute osteomyelitis, left ankle and foot; I25.10 Atherosclerotic heart disease of native coronary artery without angina pectoris; R60.0 Localized edema; E78.00 Pure hypercholesterolemia, unspecified; I10 Essential (primary) hypertension; H26.9 Unspecified cataract; I25.2 Old myocardial infarction; N40.0 Benign prostatic hyperplasia without lower urinary tract symptoms; Z79.01 Long term (current) use of anticoagulants; Z95.828 Presence of other vascular implants and grafts; Y83.8 Other surgical procedures as the cause of abnormal reaction of the patient, or of later complication, without mention of misadventure at the time of the procedure ==

== ENCOUNTER → 2020-10-20 | Outpatient (CLI) | payer OTHER | LOC: HYPER 07:42 | PROVIDERS: ATTEND Emergency Medicine Emergency Medical Services | DX: T87.89 Other complications of amputation stump (principal); I70.235 Atherosclerosis of native arteries of right leg with ulceration of other part of foot; L89.896 Pressure-induced deep tissue damage of other site; L97.512 Non-pressure chronic ulcer of other part of right foot with fat layer exposed; I70.245 Atherosclerosis of native arteries of left leg with ulceration of other part of foot; L97.522 Non-pressure chronic ulcer of other part of left foot with fat layer exposed; S91.102A Unspecified open wound of left great toe without damage to nail, initial encounter; R60.0 Localized edema; M86.172 Other acute osteomyelitis, left ankle and foot; E78.00 Pure hypercholesterolemia, unspecified; I10 Essential (primary) hypertension; H26.9 Unspecified cataract; I25.2 Old myocardial infarction; N40.0 Benign prostatic hyperplasia without lower urinary tract symptoms; Z79.01 Long term (current) use of anticoagulants; I25.10 Atherosclerotic heart disease of native coronary artery without angina pectoris; Z95.828 Presence of other vascular implants and grafts; Z79.899 Other long term (current) drug therapy; X58.XXXA Exposure to other specified factors, initial encounter; Y93.89 Activity, other specified; Y92.89 Other specified places as the place of occurrence of the external cause; Y99.8 Other external cause status; Y83.5 Amputation of limb(s) as the cause of abnormal reaction of the patient, or of later complication, without mention of misadventure at the time of the procedure ==

== ENCOUNTER 2020-10-24 11:45 | Inpatient (IN) | payer OTHER ==
[~2020-10-24] VITALS: Ht 177.8 cm; Wt 70.7 kg
[~2020-10-24 11:45] MED LIST changes: +BUPROPION HCL150 M1 PO; -BUPROPION XL150 MG PO
[2020-10-24 13:00] VITALS: BP 158/65
[2020-10-24 14:54] LABS: HEMATOCRIT 36.7 % (42.0-52.0); HEMOGLOBIN 12.1 gm/dL (14.0-18.0); MCH 32.7 pg (26.0-34.0); MCHC 33.1 g/dL (28.0-37.0); MCV 98.9 fL (80.0-100.0); RBC 3.71 mil/uL (4.50-6.00); RDW 14.6 % (10.5-14.5); WBC 10.9 thou/uL (4.0-11.0)
[2020-10-24 15:04] LABS: ALBUMIN 3.4 g/dL (3.4-5.0); CALCIUM 8.7 mg/dL (8.5-10.1); CREATININE 1.2 mg/dL (0.7-1.3); POTASSIUM 4.1 mmol/L (3.5-5.1); TOTAL PROTEIN 7.7 g/dL (6.4-8.2)
--- NOTE | 2020-10-24 15:39 | NUR ---
ASSESSMENT: CM REVIEWED CHART AND MET WITH PATIENT AT THE BEDSIDE. PT REPORTS THAT HE LIVES IN A HOUSE WITH HIS . PT REPORTS HAVING ABOUT 3 STEPS WITH HANDRAILS TO ENTER AND NO STEPS HE HAS TO USE ONCE INSIDE. PT REPORTS USING A WALKER FOR AMBULATION. PT REPORTS THAT HE HAS A SHOWER CHAIR AND IS INDEPENDENT WITH ADLS. PT WAS ADMITTED DUE TO CELLULITIS AND ON IV ANBX. WOUND CARE AND ID HAVE BEEN CONSULTED. PT REPORTS HE IS CURRENTLY IN SERVICE WITH HH BUT UNSURE THE COMPANY NAME AND STATING HE WILL CHECK WITH HIS AND LEFT CM KNOW. CM CHECKED WITH [employer] THAT WAS THE LAST HH DOCUMENTED BUT THEY STATED THEY DO NOT CURRENTLY HAVE HIM IN SERVICE. CM WILL CONTINUE TO FOLLOW TO ASSIST NEEDED.
[2020-10-24] MEDS ORDERED: SYNTHROID25 MC1 PO (15:55)
--- NOTE | 2020-10-24 16:45 | NUR ---
ASSUMED PT CARE AT 1320. PT IS ALERT & ORIENTED X4. PT HAS IV SITE ON L FA. PT HAS R HEARING AID. PT USES WALKER AND GAITBELT WHEN AMBULATING. LAST BM WAS TODAY. PT IS ON ROOM AIR. FINISHED ADMISSION HISTORY, ASSESSMENT AND UPDATED PREFERRED PHARMACY. PT C/O OF PAIN ON BOTH TOES AND GIVEN PAIN MEDICATION PER PT REQUEST. PT IS UP WITH ASSIST X1. PT FAMILY AT THE BEDSIDE. PT ON THE BED, BED ON THE LOWEST POSITION, SIDE RAILS UP, CALL LIGHT WITHIN REACH. WILL CONTINUE TO MONITOR PT. FOLLOW POC.
[2020-10-24 19:33] VITALS: BP 149/64
[2020-10-24] MEDS ORDERED: AMBIEN 5 MG TABL5 M1 PO (20:39)
--- NOTE | 2020-10-25 03:45 | NUR ---
PT BEEN RESTING IN NO ACUTE DISTRESS.REMAINS A/OX4.VSS.C/O PAIN TO JANET LES,PAIN MEDS GIVEN W/SOME RELIEF.USES URINAL TO VOID.JANET LES ELEVATED ON A PILLOW.NO OTHER CONCERNS VOICED.
[2020-10-25 04:56] VITALS: BP 154/58
[2020-10-25 06:18] LABS: HEMATOCRIT 30.3 % (42.0-52.0); HEMOGLOBIN 10.3 gm/dL (14.0-18.0); MCH 33.8 pg (26.0-34.0); MCHC 34.1 g/dL (28.0-37.0); MCV 99.1 fL (80.0-100.0); RBC 3.06 mil/uL (4.50-6.00); RDW 14.5 % (10.5-14.5); WBC 9.8 thou/uL (4.0-11.0)
[2020-10-25 06:38] LABS: CALCIUM 8.2 mg/dL (8.5-10.1); MAGNESIUM 1.8 mg/dL (1.8-2.4); POTASSIUM 3.9 mmol/L (3.5-5.1)
[2020-10-25 08:19] VITALS: BP 156/62
--- NOTE | 2020-10-25 10:30 | HC ---
[facility] [place] [address] CONSULTATION Name: MATILDE INGRAM Room #: 443-P ADM IN M.R.#: [id number] Admission: 10/24/20 Attend Phys: Germain Gamboa MD Discharge: Date of : 31 Report #: [id number] THIS REPORT FOR: cc: Patrick Samuel Ronald D. DO Stephens, Thad A. MD ~ DOC #: [id number] Charles De La Rosa MD DATE OF SERVICE: 10/24/2020 WOUND CARE CONSULTATION HISTORY OF PRESENT ILLNESS: This is an 89-year-old white male who has been a longstanding patient of mine for chronic ulcers on bilateral feet and toes. The patient most recently developed swelling on the lateral aspect of his left foot with a small open wound, which was draining seropurulent drainage last week. The patient was seen by my partner, Dr. Aguila. It was felt that the patient required admission; however, the patient was adamant he did not want to be hospitalized over the weekend, so patient called this morning and was made a direct admission to the hospital for left foot cellulitis. The patient has now been admitted for IV antibiotics and further evaluation. The patient also was noted to have ulceration on his right great toe, which is also chronic and does not appear to be overtly infected. Patient's most recent wound culture grew out MRSA. The patient denies any other associated wounds at this time. PAST MEDICAL HISTORY: Significant for coronary artery disease, hypertension, hypercholesterolemia, significant peripheral vascular disease, left second toe partial amputation, recent TAVR procedure. CURRENT MEDICATIONS: Multiple, I reviewed the patient's medication list. DRUG ALLERGIES: None. SOCIAL HISTORY: The patient does not smoke or drink alcohol. FAMILY HISTORY: Not pertinent to current medical condition. REVIEW OF SYSTEMS: CONSTITUTIONAL: The patient denies fevers or chills. NEUROLOGIC: The patient has mild generalized weakness. There has been no isolated obese arms or legs. EYES: No complaints. ENT: No complaints. CARDIAC: The patient denies chest pain, palpitation, or peripheral edema. RESPIRATORY: The patient denies shortness of breath, cough or wheezes. [address] [address] CONSULTATION Name: MATILDE INGRAM Room #: 443-P [facility] IN .R.#: [id number] Admission: 10/24/20 Attend Phys: Germain Gamboa MD Discharge: Date of : 31 Report #: [id number] GASTROINTESTINAL: The patient denies nausea, vomiting or abdominal pain. GENITOURINARY: The patient has urgency or frequency. MUSCULOSKELETAL: The patient complains of pain in his left foot. SKIN: There is chronic ulceration of right great toe with eschar as well as a small area of multiple wounds in the left lateral foot with erythema and warmth. PHYSICAL EXAMINATION: VITAL SIGNS: Temperature 36.2, pulse 79, respirations 30, BP 158/65. GENERAL: This is an alert and oriented x3, pleasant white male who is in mild distress secondary to pain. HEENT: Normocephalic, atraumatic. Mucous membranes are somewhat dry. Pupils are round. Sclerae are white. NECK: Without JVD. LUNGS: Clear. HEART: Regular. ABDOMEN: Soft, nontender. EXTREMITIES: Evaluation of left lower extremity reveals 1+ dorsalis pedis pulse. The lateral aspect of the left foot is somewhat erythematous, but nontender to palpation. There is increased warmth. There is a small area where the previous wound was opened but there is nothing open at this time. Right great toe eschar is stable and intact. There is a traumatic abrasion to the left great toe without signs of overt cellulitis. Bilateral heels are intact. NEUROLOGIC: Cranial nerves II-XII grossly intact. Motor and sensory are grossly intact. LABORATORY DATA: White count 10.9, hemoglobin 12.1, BUN 16, creatinine 1.2, albumin 3.4, prealbumin 20.1. IMPRESSION: 1. Cellulitis, left foot. 2. Chronic ulceration, right great toe without signs of cellulitis. 3. Status post remote amputation of left fifth ray. 4. Severe peripheral arterial disease status post multiple stents. 5. Hypertension. 6. Generalized debility. 7. Mild protein-calorie malnutrition with albumin at 3.4. PLAN: At this time, we will put Betadine on the right great toe ulceration daily. We will start gentamicin, Xeroform and bordered foam on the traumatic abrasion to left great toe. We will paint the surgical site to the left lateral foot with Betadine daily. We will continue IV antibiotics. We will make sure we maximize the patient's oral potassium supplementation for healing. We utilized physical and occupational therapy for strengthening. We will continue all other current medications. I appreciate the ability to consult. [facility] [address] [place] [address] CONSULTATION Name: MATILDE INGRAM Room #: 443-P ADM IN M.R.#: [id number] Admission: 10/24/20 Attend Phys: Germain Gamboa MD Discharge: Date of : 31 Report #: [id number] MD GURJIT Fairbanks/NAUNT <ELECTRONICALLY SIGNED> By: Charles De La Rosa MD 10/25/20 1030 1643 2235 Charles De La Rosa MD /nt
--- NOTE | 2020-10-25 12:11 | NUR ---
ON-GOING ASSESSMENT: CM REVIEWED CHART. CM SPOKE WITH PATIENTS AINSLEY WHO REPORTS PT WAS IN SERVICE WITH [facility] PRIOR TO ADMISSION. CM CONTACTED [facility] AND FAXED THEM CLINICAL INFORMATION. STATES PT NEEDS TO GO TO [facility] REHAB BEFORE SHE TAKES HIM BACK HOME. CM DISCUSSED THAT ACUTE REHAB IS ALSO HERE AT [facility] AND SHE STATES SHE HAS A DAUGHTER THAT WORKS AT [employer] AND HAS ALREADY TRIED TO GET HIM INTO [employer] PRIOR TO HOSPITALIZATION AND WANTS TO GO THERE. CM EXPLAINED A REFERRAL CAN BE SENT TO [employer] FOR THEM TO EVAL AND SUBMIT FOR INSURANCE AUTH IF THEY FEEL APPROPRIATE BUT EXPLAINED IT IS UP TO INSURANCE WHETHER OR NOT THEY WILL APPROVE A STAY. CM FAXED REFERRAL TO [employer] AND NOTIFIED JIM IN ADMISSIONS WHO REPORTS THEY ARE FAMILIAR WITH PATIENT AND WILL REVIEW. CM WILL CONTINUE TO FOLLOW TO ASSIST NEEDED.
--- NOTE | 2020-10-25 12:42 | NUR ---
ASSUMED CARE OF PT AT 0700 THIS MORNING. PT WAS ADMITTED FOR CELLULITIS AND INFECTION IN LEFT GREATER TOE. LAST THREE TOES HAVE ALREADY BEEN AMPUTATED. TENDERNESS AND PAIN IN LEFT CALF AREA WITH REDNESS. SKIN INTACT OTHERWISE WITH NO TENTING. CR>3SEC IN LOWER EXTREMITIES. ABD SOFT NONTENDER, ACTIVE BOWEL SOUNDS. LUNGS DEMINISHED IN LOWER KU. PT IS A/OX4 WITH NO OTHER ISSUES. ASSESSMENTS OTHERWISE UNREMARKABLE. CALL LIGHT AND OTHER NEEDS ARE PLACED WITHIN REACH, MEDS AND TX GIVEN NEEDED AND SCHEDULED.
[2020-10-25 12:48] VITALS: BP 156/62
[2020-10-25 17:31] VITALS: BP 158/63
--- NOTE | 2020-10-25 19:44 | NUR ---
RN ASSUMED PT'S CARE ABOUT 1240PM, PT IS A&OX4, PT IS CONTINUING IV ABX AND PAIN MANAGEMENT, PT'S VS ARE STABLE AT DAY SHIFT.
[2020-10-25 19:52] VITALS: BP 160/67
--- NOTE | 2020-10-26 01:03 | NUR ---
PT ALERT AND ORIENTED X 4. PT C/O PAIN IN HIS FEET. OXYCODONE GIVEN AT HS PER PT REQUEST. ALSO REQUESTED AMBIEN FOR SLEEP. PT REFUSED TO HAVE SOCKS REMOVED FOR ASSESSMENT OF FEET. PT APPEARS TO BE SLEEPING ON HOURLY ROUNDS.
[2020-10-26 04:39] VITALS: BP 127/45
[2020-10-26 05:56] LABS: HEMATOCRIT 32.9 % (42.0-52.0); HEMOGLOBIN 10.9 gm/dL (14.0-18.0); MCHC 33.3 g/dL (28.0-37.0); MCV 99.3 fL (80.0-100.0); RBC 3.31 mil/uL (4.50-6.00); RDW 14.8 % (10.5-14.5); WBC 12.2 thou/uL (4.0-11.0)
[2020-10-26 06:10] LABS: CALCIUM 8.5 mg/dL (8.5-10.1); POTASSIUM 4.3 mmol/L (3.5-5.1)
[2020-10-26 07:35] VITALS: BP 129/54
--- NOTE | 2020-10-26 11:07 | NUR ---
ASSUMED PT CARE THIS AM. PT IS ALERT & ORIENTED X4. PT HAS IV SITE ON L FA SALINE LOCKED. PT IS UP WITH ASSIST X1 AND USES WALKER. PT USES HEARING AID ON R EAR. INFORMED AND CALLED DR SELF THAT PT WAS DEMANDING AND EXPECTING MRI THIS AM. PT WILL HAVE AN MRI ON R FOOT W/O CONTRAST TODAY PER PT REQUEST. NO C/O OF NAUSEA AND VOMITING THIS AM. PT IS ON ROOM AIR. PT SISTER AT THE BEDSIDE. PT ON THE BED, BED ON THE LOWEST POSITION, SIDE RAILS UP, CALL LIGHT WITHIN REACH. WILL CONTINUE TO MONITOR PT. FOLLOW POC.
--- NOTE | 2020-10-26 12:53 | NUR ---
ON-GOING ASSESSMENT: CM REVIEWED CHART AND SPOKE WITH ATTENDING. CM FAXED UPDATED CLINICAL TO JIM IN ADMISSIONS AT [facility] AND AUTH IS STILL PENDING AT THIS TIME. CM ALSO FAXED CLINICAL TO [facility] IN ATTEMPTS TO EXPEDITE THE AUTH PROCESS. AWAITING TO HEAR BACK AT THIS TIME. PT REMAINS ON IV ANBX AND AWAITING FINAL RECS FROM [facility]. CM WILL CONTINUE TO FOLLOW.
[2020-10-26 15:00] VITALS: BP 129/52
[2020-10-26 20:11] VITALS: BP 147/55
--- NOTE | 2020-10-27 04:14 | NUR ---
UPON SHIFT ASSESSMENT, PT AOX4. PT REPORTS 6/10 PAIN IN RLE. PT RECEIVING PRN PO OXYCODONE IR Q8HR. PT DENIES SOB WHILE ON ROOM AIR. PT TOLERATING PO INTAKE OF FLUIDS AND HEART HEALTHY DIET WITHOUT ISSUE. PT WITHOUT NAUSEA OR EMESIS. PT AMBULATING WITH WALKER AND STANDBY ASSIST TO BATHROOM, INTERMITTENTLY USING URINAL, RESTING IN BED OTHERWISE. FREQUENT REPOSITIONING ENCOURAGED WHILE IN BED, PT NOTED TO SHIFT INDEPENDENTLY. SENSATION INTACT, CAPILLARY REFILL LESS THAN 3SEC IN ALL EXTREMITIES, BUE PULSES PALPABLE, BLE PULSES FAINT. PT ENCOURAGED TO NOTIFY STAFF FOR ALL NEEDS, CALL LIGHT WITHIN REACH, BED ALARM ON, BED LOCKED IN LOWEST POSITION, FREQUENT MONITORING WILL CONTINUE.
[2020-10-27 05:33] LABS: HEMATOCRIT 31.4 % (42.0-52.0); HEMOGLOBIN 10.4 gm/dL (14.0-18.0); MCV 99.9 fL (80.0-100.0); RBC 3.14 mil/uL (4.50-6.00); RDW 14.9 % (10.5-14.5); WBC 9.6 thou/uL (4.0-11.0)
[2020-10-27 06:11] LABS: CALCIUM 8.4 mg/dL (8.5-10.1); POTASSIUM 4.4 mmol/L (3.5-5.1)
[2020-10-27 08:33] VITALS: BP 139/67
--- NOTE | 2020-10-27 12:29 | NUR ---
Assumed pt care at 7am.Pt in bed resting.Assessment completed.vss.Pt tolerated meds and diet.C/o rt foot toe and pain med given with relief.Dr Lozada here elevated bp noted.Am meds given with breakfast and well tolerated.Dr Little here ,this rn informed him about resuming pt home meds.Pt here,updates given.Pt dangle at bs for all meals.Good appetite.Sonia ROSA here to see. Stated that pt will be transfered to rehab unit in am.Will continue to monitor.
--- NOTE | 2020-10-27 12:36 | NUR ---
ON-GOING ASSESSMENT: TERESSA SPOKE WITH LAURIE IN ADMISSIONS AT [facility] WHO REPORTS PT WAS DENIED FOR ACUTE REHAB AND A PEER TO PEER IS AVAILABLE BY CALLING [phone] REF#[id number]. CM NOTIFIED PT AND HIS AINSLEY WHO REQUEST THE PEER TO PEER BE COMPLETED. TERESSA SPOKE WITH DR. TORRES AND ARRANGED PEER TO PEER FOR HIM TODAY AT 0930 FOR DENIAL FOR ACUTE REHAB WITH THEIR PHYSICAN DR. WILLIS GONSALEZ AND DENIAL FOR ACUTE REHAB WAS UPHELD THEY FEEL HIS NEEDS CAN BE MET AT A SNF LEVEL OF CARE. CM DISCUSSED WITH PT AND AND THEY WANTED A REFERRAL SENT TO [facility]. REFERRAL SENT AND THEY CAN ACCEPT PATIENT PENDING INSURANCE AUTH. HOWEVER, ORTHO SURGEON WAS CONSULTED MRI SHOWING OSTEO. AWAITING FURTHER PLANS AT THIS TIME MAY REQUIRE POSSIBLE AMPUTATION. CM NOTIFIED [facility] AND SENT UPDATED CLINICAL. CM WILL CONTINUE TO FOLLOW TO ASSIST NEEDED.
--- NOTE | 2020-10-27 12:43 | NUR ---
WOUND CARE F/U; THE GREAT TOE AND LEFT LATERAL FOOT WERE ASSESSED. THE WOUNDS ARE STABLE TODAY. NO CHANGES IN THE DRESSING ORDERS ARE NEEDED. THE RIGHT GREAT ORDERS ARE BETADINE. THE LEFT GREAT TOE ORDER IS FOR GENTAMYCIN OINTMENT/XEROFORM/BORDER FOAM. THE LEFT LAT FOOT PAINT WITH BETADINE. DISCUSSED WITH SHREE
--- NOTE | 2020-10-27 14:00 | HC ---
[facility] [place] [address] CONSULTATION Name: MATILDE INGRAM Room #: 443-P ADM IN M.R.#: [id number] Admission: 10/24/20 Attend Phys: Germain Gamboa MD Discharge: Date of : 31 Report #: [id number] THIS REPORT FOR: cc: Patrick Samuel Ronald D. DO Geha, Daniel J. MD ~ DOC #: [id number] Sim Cortes MD DATE OF SERVICE: 10/25/2020 REASON FOR CONSULTATION: Asked to evaluate concerning left lateral foot wound and soft tissue infection. HISTORY OF PRESENT ILLNESS: An 89-year-old underlying peripheral vascular disease, who has had multiple angioplasties and stents with a TAVR in place, has had multiple surgeries to his feet due to gangrene and osteomyelitis. He has had a ray amputation of the fifth toe. He has had amputation of the second toe on the left foot. He has had issues with nonhealing ulcer to the base of his left first toe. Also, has had increased swelling and drainage from his lateral left foot over the base of the metatarsal that remains. He also has had a nonhealing wound over the dorsum of his right first toe and nail bed. Cultures from the drainage of his left lateral foot has grown MRSA. He presents now for IV antibiotic therapy. No fever, chills or sweats. He has pain involving the lateral foot as well as his right first toe. REVIEW OF SYSTEMS: A 14-point review of system was negative other than what has been described above. ALLERGIES: None known. MEDICATIONS: As noted on his MAR, having been started on vancomycin. He was previously on cefpodoxime. PAST MEDICAL HISTORY: Coronary artery disease, coronary stents, hypertension, hyperlipidemia, degenerative arthritis. PAST SURGICAL HISTORY: Left second toe amputation, the aortic and mitral stenosis status post TAVR, bilateral lower extremity arterial stents, bilateral cataract surgery. FAMILY HISTORY: Negative for tuberculosis. SOCIAL HISTORY: Nonsmoker. No significant alcohol intake. PHYSICAL EXAMINATION: VITAL SIGNS: He is afebrile, hemodynamically stable. He is alert, cooperative, [facility] [address] [place] [address] CONSULTATION Name: MATILDE INGRAM Room #: 443-P [facility] IN ..#: [id number] Admission: 10/24/20 Attend Phys: Germain Gamboa MD Discharge: Date of : 31 Report #: [id number] and pleasant. GENERAL: No acute distress. HEENT: Without scleral icterus. Mouth without mucositis. NECK: Supple. LUNGS: Clear. HEART: Regular with crisp valve sounds. He did have a II/ systolic murmur heard at left sternal border. ABDOMEN: Soft and nontender with no hepatosplenomegaly or mass. EXTREMITIES: He had decreased pulses in both feet. The left foot with area of cellulitis and two sinus tracts over the lateral foot base of the fifth metatarsal, had a shallow ulcer over the plantar aspect of his left first toe. There was some ecchymosis to the distal aspect of the toe with tenderness there. Onychomycosis of his nails. Right first toe had eschar over the dorsum of his toe and nail bed. Sensation to touch was within normal limits, both feet. Pulses were nonpalpable in both feet. LABORATORY: Reviewed. MICROBIOLOGY: Reviewed. IMPRESSION: An 89-year-old with; 1. Peripheral vascular disease, multiple interventions and previous amputations with left lateral foot MRSA cellulitis, soft tissue abscess. Left great toe wound, which was clean at the base. Had some vascular insufficiency involving the distal toe. Right great toe wound over the nail bed. 2. History of transcatheter aortic valve replacement. 3. Hyperlipidemia. 4. Hypertension. 5. Benign prostatic hypertrophy. RECOMMENDATIONS: We will continue with IV antibiotic therapy, vancomycin along with wound care and further imaging of his foot to assess for osteomyelitis. Sim Cortes MD DJG/ONESIMO <ELECTRONICALLY SIGNED> By: Sim Cortes MD 10/27/20 1400 1145 2103 Sim Cortes MD /nt
--- NOTE | 2020-10-27 16:22 | NUR ---
Assumed pt care at 7am.Pt in bed sleeping but arousable.Assessment completed. Vss.Pt tolerated meds and diet.Pinky Supervisor Delivery Department here from [facility] discussed with pt possible amputation of rt infected toe.Pt said he has to think about it and call Pinky back later today.One hour later,pt called this rn and said he's going to go for amputation and that,Pinky should be notified.Pt will be added to [facility] g[facility].Oral pain med given with relief.Will continue to monitor.
[2020-10-27 16:23] VITALS: BP 137/67
--- NOTE | 2020-10-27 19:43 | NUR ---
PT REQUESTING TO BE PLACED ON A REGULAR DIET. FAMILY AND PT HAVE BEEN EDUCATED ON WHY THE PT WAS PLACED ON A HEART HEALTHY DIET AND PT AND FAMILY ARE ADAMIT ABOUT HAVING A REGULAR DIET WHILE HERE IN THE HOSPITAL. LACQUER POLISHER NOTIFIED. DIET ORDER CHANGED.
[2020-10-27 20:30] VITALS: BP 140/63
--- NOTE | 2020-10-28 04:12 | NUR ---
BP ELEVATED. INFORMATION SERVICES TECH NOTIFIED. ORDERS GIVEN TO GIVE PRESCRIBED 0900 BP MEDICATION DOCUMENTED TO PT EARLY.
[2020-10-28 04:20] VITALS: BP 122/42
[2020-10-28 05:47] LABS: HEMATOCRIT 31.7 % (42.0-52.0); HEMOGLOBIN 10.6 gm/dL (14.0-18.0); MCH 33.1 pg (26.0-34.0); MCHC 33.4 g/dL (28.0-37.0); RBC 3.21 mil/uL (4.50-6.00); WBC 7.3 thou/uL (4.0-11.0)
[2020-10-28 05:56] LABS: CALCIUM 8.6 mg/dL (8.5-10.1); CREATININE 0.9 mg/dL (0.7-1.3); POTASSIUM 4.2 mmol/L (3.5-5.1)
[2020-10-28 10:20] VITALS: BP 148/58
--- NOTE | 2020-10-28 13:36 | NUR ---
ASSUMED PT CARE THIS AM. PT IS ALERT & ORIENTED X4. PT HAS IV SITE ON L HAND SALINE LOCKED. PT IS UP WITH ASSIST X1 AND USES WALKER. PT USES BEDSIDE COMMODE AND URINAL. PT HAD R GREAT TOE AMPUTATUON TODAY. PT HAS GAUZE AND ANNABELLE WRAP ON R FOOT. PT TOLERATED CLEAR LIQUID DIET THIS LUNCH AND WILL ADVANCE THE DIET FOR DINNER. PT REFUSED TO PLACED BED ALARM AND WILL CONTINUE EDUCATING PATIENT FOR FALL RISK PRECAUTION. PT ON THE BED WATCHING TV, BED ON THE LOWEST POSITION, SIDE RAILS UP, CALL LIGHT WITHIN REACH. WILL CONTINUE TO MONITOR PT. FOLLOW POC.
[2020-10-28 15:42] VITALS: BP 133/60
[2020-10-28 20:10] VITALS: BP 127/58
--- NOTE | 2020-10-29 01:11 | NUR ---
PT IS A/O X4 AND IS UP WITH SBA TO THE BR. DRSGS ARE C/D/I. NO DRAINAGE NOTED. PT REQUESTED NIGHT TIME MEDICATIONS EARLY ALONG WITH HIS PAIN MEDICATION AND SLEEPING PILL. SAID HE DOES NOT WANT ANYONE COMING IN TO DO MORNING LABS DESPITE BEING EDUCATED ON THEIR PURPOSE. ENDORSED THIS TO THE LAB STAFF. FALL PRECAUTIONS IN PLACE, CALL LIGHT IS WITHIN REACH. WILL CONTINUE TO MONITOR.
[2020-10-29 07:25] VITALS: BP 145/66
--- NOTE | 2020-10-29 10:00 | NUR ---
ASSUMED PT CARE THIS AM. PT IS ALERT & ORIENTED X4. PT HAS IV SITE ON L HAND SALINE LOCKED. PT IS UP WITH ASSIST X1 AND USES WALKER AND GAITBELT.PT HAS R HEARING AIR. PT IS ON ROOM AIR. PT C/O OF PAIN AND GIVEN PAIN MEDICATION AT 0400. INFORMED PT THAT NEXT PAIN MEDICATION IS DUE [address] Q[address] INFORMED [address] THAT PT HAS ONLY ONE PAIN MEDICATION ON EMAR AND ASKING FOR PAIN MEDICATION AT THIS TIME. PT TOLERATED DIET THIS MORNING. PT ABLE TO SWALLOW MEDICATION WHOLE. PT AT THE BEDSIDE. PT ON THE BED WATCHING TV, BED ON THE LOWEST POSITION, SIDE RAILS UP, CALL LIGHT WITHIN REACH. WILL CONTINUE TO MONITOR PT. FOLLOW POC.
[2020-10-29 12:33] LABS: HEMATOCRIT 31.7 % (42.0-52.0); HEMOGLOBIN 10.7 gm/dL (14.0-18.0); MCH 33.2 pg (26.0-34.0); MCHC 33.7 g/dL (28.0-37.0); MCV 98.5 fL (80.0-100.0); RBC 3.22 mil/uL (4.50-6.00); RDW 14.5 % (10.5-14.5); WBC 9.9 thou/uL (4.0-11.0)
[2020-10-29 15:25] VITALS: BP 152/70
--- NOTE | 2020-10-29 17:03 | NUR ---
A #4F POWER INJECTABLE MIDLINE WAS PLACED PER HOSPITAL POLICY. LINE SECURED AND RELEASED FOR USE
[2020-10-29 20:00] VITALS: BP 142/56
[2020-10-30 08:15] VITALS: BP 126/55
[2020-10-30 09:28] VITALS: BP 126/55
--- NOTE | 2020-10-30 10:45 | NUR ---
ASSUMED CARE OF PT AT 0700 THIS MORNING. PT WAS ASLEEP DURING REPORT. PT WOKE WITH NO PAIN AT THE TIME. LATER C/O PAIN IN LEFT FOOT AND WAS GIVEN PAIN MED WITH MORNING MEDS. PT IS A/OX4 WITH DRESSING ON RIGHT FOOT C/D/I POST OP AND WILL BE CHANGED BY SURGEON. PT ASSESSMENTS OTHERWISE UNREMARKALBLE. CALL LIGHT AND OTHER NEEDS ARE WITHIN REACH. MEDS AND TX GIVEN NEEDED AND SCHEDULED.
[2020-10-30] MEDS ORDERED: GENTAMICIN SULF15 GM TOP (11:54)
[2020-10-30] MEDS ORDERED: PERCOCET 10-321 EACH PO (11:54)
[2020-10-30] MEDS ORDERED: MIRALAX17 GM PO (11:54)
--- NOTE | 2020-10-30 14:30 | NUR ---
ON-GOING ASSESSMENT: CM REVIEWED CHART AND FAXED UPDATED CLINICAL TO [facility]. CM SPOKE WITH LIASON FROM [facility] WHO REPORTS THEY HAVE INSURANCE AUTH AND CAN ACCEPT PATIENT TODAY. CM NOTIFIED ATTENDING. CM ALSO NOTIFIED LIASON AT [facility] THAT PATIENT WILL BE COMING ON IV ANBX (VANCOMYCIN 1GM IV Q 12 HOURS FOR ONE WEEK, CALL FOR REFILL, EVERY TUESDAYS LAB: CBC CMP ESR CRP VANC TROUGH). PT ALREADY HAS LINE PLACED FOR IV ANBX. [facility] STATING THEY ARE AWARE AND CAN ACCEPT. CM FAXED DISCHARGE PAPERWORK STATING THIS INFORMATION UNDER THE GENERAL INSTRUCTIONS AND [facility] CONFIRMED RECEIVING IT. CHART COPY WAS ORDERED. BEDSIDE RN IS AWARE OF DISCHARGE AND NUMBER FOR REPORT. TERESSA SPOKE WITH PT AND HIS AINSLEY AT THE BEDSIDE AND AGREEABLE WITH PLAN. TRANSPORTATION HAS BEEN ARRANGED FOR 1600, PATIENT AND BEDSIDE RN AWARE. PT REPORTS NO FURTHER NEEDS FROM . CASE CLOSED.
--- NOTE | 2020-11-01 19:07 | PATH ---
[facility] [address] [place] [address] PATHOLOGY RPT PROCEDURE Name: ISSAC VALLEJO Room #: 443-P DIS IN M.R.#: [id number] Admission: 10/24/20 Date of : 31 Discharge: 10/30/20 Report #: [id number] Path Case #: [id number] [facility] Accession Number: [id number] . 01 Material submitted: . toe - RIGHT GREAT TOE. Modifiers: right, great . 01 Clinical history: . AMPUTATION OF TOES OSTEOMYELITIS LEFT FOOT CELLULITIS . 02 Diagnosis: Toe, right great toe, amputation: - Ulceration and marked acute inflammation of skin and subcutaneous tissue. - Acute osteomyelitis. - Skin and bone margins viable. (IUV:pit; 11/01/2020) QTP 11/01/2020 1248 Local . 02 Electronically signed: . Nadine Castillo MD, Pathologist NPI- [id number] . 01 Gross description: . Received in formalin labeled "Issac Vallejo and right great toe". Received is a distal amputation of the big toe that measures 3.0 x 2.5 x 2.3 cm. The articular surface is smooth to rigid. The skin is pale white with an inherent crusted/necrotic purulent material clone measuring 2.5 x 1.5 x 0.2 cm. The articular surface is inked black. Surgical margins skin is inked blue. Also, submitted is a skin wedge measuring 4.0 x 0.5 x 0.5 cm. The skin margins are inked green. Sectioning reveals loose spongy bone cortex with necrotic/purulent material adherent to the skin (distally). Sectioning of the skin with wedged reveals white fibrous cut surfaces and no grossly apparent lesions. The specimen is representatively submitted in cassettes A1 through A5 after decalcification. A1- proximal bone margin (black inked) A2-proximal margin skin A3-distal skin and adherent necrotic material A4- distal skin and bone A5-detached skin wedge (BLJ; 10/30/2020) BLJ/BLJ 10/30/2020 2222 Local . 02 Pathologist provided ICD-10: [address] [address] PATHOLOGY RPT PROCEDURE Name: ISSAC VALLEJO Room #: 443-P DIS IN M.R.#: [id number] Admission: 10/24/20 Date of : 31 Discharge: 10/30/20 Report #: [id number] Path Case #: [id number], [id number] . 02 CPT . [id number], [id number] Specimen Comment: A courtesy copy of this report has been sent to [phone], [phone] Specimen Comment: [phone], Specimen Comment: Report sent to ,DR MIRAMONTES / DR POZO Performed at: [address] [facility], [place] [id number] MD Héctor Mcdonald MD Phone: [phone] Performed at: [address] [id number] MD Nadine Castillo MD Phone: [phone]
--- NOTE | 2020-11-22 09:27 | O ---
[facility] [place] [address] OPERATIVE REPORT Name: MATILDE INGRAM Room #: 443-P [facility] IN M.R.#: [id number] Admission: 10/24/20 Attend Phys: Germain Gamboa MD Discharge: 10/30/20 Date of : 31 Report #: [id number] THIS REPORT FOR: cc: Patrick Samuel Ronald D. DO VanDenBerghe, Gregory R. MD ~ DOC #: [id number] Thong Kuhn MD PREOPERATIVE DIAGNOSES: Right great toe osteomyelitis with ulceration. POSTOPERATIVE DIAGNOSES: Right great toe osteomyelitis with ulceration. PROCEDURE PERFORMED: Right great toe amputation. SURGEON: Thong Kuhn MD RESIDENTIAL INTERIOR DESIGNER: Pinky Gross PA-C ANESTHESIA: General. ESTIMATED BLOOD LOSS: 10 mL SPECIMENS: Right great toe. DESCRIPTION OF PROCEDURE: After proper identification of the patient and the operative site in preoperative holding area, the operative site signed by myself. Prophylactic antibiotics had been given. The patient's imaging studies and nonhealing wound as well as the osteomyelitis were explained in detail to the patient. He elected to proceed with the above procedure with the intent on preserving as much length as possible. The patient was brought back to the operative suite after induction of satisfactory general anesthesia, the right lower extremity was elevated, sterilely prepped in the usual manner and draped. Elliptical fishmouth type incisions were planned around the involved skin while also noting the distal phalanx osteomyelitis. Full-thickness skin flaps were developed and the patient had good punctate bleeding. The distal phalanx was disarticulated at the IP joint. Tendons were pulled distally and sectioned proximally and the proximal phalanx appeared healthy in appearance. The surrounding tissues at this level revealed no active infection or subcutaneous abscesses. This area was thoroughly irrigated with normal saline and wound was closed with 2-0 nylon. Skin edges appeared healthy and then sterile dressing was applied. MD KERA Rousseau/SAYRA [address] [address] OPERATIVE REPORT Name: MARCOMERLINMATILDE Room #: 443-P DIS IN M.R.#: [id number] Admission: 10/24/20 Attend Phys: Germain Gamboa MD Discharge: 10/30/20 Date of : 31 Report #: [id number] <ELECTRONICALLY SIGNED> By: Thong Kuhn MD 11/22/20 0927 0832 Thong Kuhn MD /nt
== END 2020-10-30 17:03 | DRG 504 ==
LOC: 4S 11:45
PROVIDERS: Hospitalist; ADMIT Internal Medicine; ATTEND Internal Medicine
DX: M86.171 Other acute osteomyelitis, right ankle and foot (principal); L03.116 Cellulitis of left lower limb; E44.1 Mild protein-calorie malnutrition; B35.1 Tinea unguium; I25.10 Atherosclerotic heart disease of native coronary artery without angina pectoris; I10 Essential (primary) hypertension; E78.00 Pure hypercholesterolemia, unspecified; I73.9 Peripheral vascular disease, unspecified; M19.90 Unspecified osteoarthritis, unspecified site; L97.519 Non-pressure chronic ulcer of other part of right foot with unspecified severity; L03.031 Cellulitis of right toe; S90.412A Abrasion, left great toe, initial encounter; F32.9 Major depressive disorder, single episode, unspecified; B95.7 Other staphylococcus as the cause of diseases classified elsewhere; E78.5 Hyperlipidemia, unspecified; N40.0 Benign prostatic hyperplasia without lower urinary tract symptoms; X58.XXXA Exposure to other specified factors, initial encounter; Z68.22 Body mass index [BMI] 22.0-22.9, adult; Z89.412 Acquired absence of left great toe; Z95.5 Presence of coronary angioplasty implant and graft; Z98.42 Cataract extraction status, left eye; Z98.41 Cataract extraction status, right eye; Y93.89 Activity, other specified; Y92.89 Other specified places as the place of occurrence of the external cause; Y99.8 Other external cause status
CPT/HCPCS: 10102; 27000; 50101; 50386; 56525; 57091; 57179; 62110; 62900; 70005

== ENCOUNTER → 2020-12-05 | Outpatient (CLI) | payer OTHER ==
[~2020-12-05] MED LIST changes: +AMBIEN 5 MG TABL5 M1 PO; +GENTAMICIN SULF15 GM TOP; +MIRALAX17 GM PO; +PERCOCET 10-321 EACH PO; +SYNTHROID25 MC1 PO
== END ==
LOC: RAD 14:31
PROVIDERS: ATTEND Specialist
DX: S91.302A Unspecified open wound, left foot, initial encounter (principal); M86.9 Osteomyelitis, unspecified; X58.XXXA Exposure to other specified factors, initial encounter; Y93.89 Activity, other specified; Y92.89 Other specified places as the place of occurrence of the external cause; Y99.8 Other external cause status

== ENCOUNTER → 2020-12-08 | Outpatient (CLI) | payer OTHER | LOC: HYPER 07:48 | PROVIDERS: ATTEND Emergency Medicine Emergency Medical Services | DX: L89.896 Pressure-induced deep tissue damage of other site (principal); I70.235 Atherosclerosis of native arteries of right leg with ulceration of other part of foot; L97.512 Non-pressure chronic ulcer of other part of right foot with fat layer exposed; I70.245 Atherosclerosis of native arteries of left leg with ulceration of other part of foot; L97.521 Non-pressure chronic ulcer of other part of left foot limited to breakdown of skin; S90.414A Abrasion, right lesser toe(s), initial encounter; S91.102D Unspecified open wound of left great toe without damage to nail, subsequent encounter; R60.0 Localized edema; M86.172 Other acute osteomyelitis, left ankle and foot; I25.10 Atherosclerotic heart disease of native coronary artery without angina pectoris; E78.00 Pure hypercholesterolemia, unspecified; I10 Essential (primary) hypertension; H26.9 Unspecified cataract; N40.0 Benign prostatic hyperplasia without lower urinary tract symptoms; Z95.828 Presence of other vascular implants and grafts; Z79.01 Long term (current) use of anticoagulants; Z79.899 Other long term (current) drug therapy; Z89.411 Acquired absence of right great toe; X58.XXXA Exposure to other specified factors, initial encounter; X58.XXXD Exposure to other specified factors, subsequent encounter; Y93.89 Activity, other specified; Y92.89 Other specified places as the place of occurrence of the external cause; Y99.8 Other external cause status ==

== ENCOUNTER → 2021-01-04 | Outpatient (CLI) | payer OTHER | LOC: HYPER 08:10 | PROVIDERS: ATTEND Emergency Medicine | DX: L89.896 Pressure-induced deep tissue damage of other site (principal); I70.235 Atherosclerosis of native arteries of right leg with ulceration of other part of foot; L97.512 Non-pressure chronic ulcer of other part of right foot with fat layer exposed; I70.245 Atherosclerosis of native arteries of left leg with ulceration of other part of foot; L97.521 Non-pressure chronic ulcer of other part of left foot limited to breakdown of skin; L84 Corns and callosities; S91.102D Unspecified open wound of left great toe without damage to nail, subsequent encounter; M86.172 Other acute osteomyelitis, left ankle and foot; R60.0 Localized edema; I25.10 Atherosclerotic heart disease of native coronary artery without angina pectoris; E78.00 Pure hypercholesterolemia, unspecified; I10 Essential (primary) hypertension; I25.2 Old myocardial infarction; H26.9 Unspecified cataract; N40.0 Benign prostatic hyperplasia without lower urinary tract symptoms; Z95.828 Presence of other vascular implants and grafts; Z79.01 Long term (current) use of anticoagulants; Z89.411 Acquired absence of right great toe; X58.XXXD Exposure to other specified factors, subsequent encounter ==

== ENCOUNTER → 2021-01-11 | Outpatient (CLI) | payer OTHER | LOC: HYPER 07:49 | PROVIDERS: ATTEND Emergency Medicine Emergency Medical Services | DX: T81.89XD Other complications of procedures, not elsewhere classified, subsequent encounter (principal); I70.235 Atherosclerosis of native arteries of right leg with ulceration of other part of foot; L89.896 Pressure-induced deep tissue damage of other site; L97.512 Non-pressure chronic ulcer of other part of right foot with fat layer exposed; I70.245 Atherosclerosis of native arteries of left leg with ulceration of other part of foot; L97.521 Non-pressure chronic ulcer of other part of left foot limited to breakdown of skin; M86.172 Other acute osteomyelitis, left ankle and foot; I70.25 Atherosclerosis of native arteries of other extremities with ulceration; R60.0 Localized edema; I25.10 Atherosclerotic heart disease of native coronary artery without angina pectoris; E78.00 Pure hypercholesterolemia, unspecified; I10 Essential (primary) hypertension; H26.9 Unspecified cataract; I25.2 Old myocardial infarction; N40.0 Benign prostatic hyperplasia without lower urinary tract symptoms; Z79.01 Long term (current) use of anticoagulants; Z79.899 Other long term (current) drug therapy; Z95.828 Presence of other vascular implants and grafts; Y83.8 Other surgical procedures as the cause of abnormal reaction of the patient, or of later complication, without mention of misadventure at the time of the procedure ==

== ENCOUNTER → 2021-02-06 | Outpatient (CLI) | payer OTHER | LOC: HYPER 08:18 | PROVIDERS: ATTEND Emergency Medicine | DX: T81.31XD Disruption of external operation (surgical) wound, not elsewhere classified, subsequent encounter (principal); I70.235 Atherosclerosis of native arteries of right leg with ulceration of other part of foot; L97.518 Non-pressure chronic ulcer of other part of right foot with other specified severity; R60.0 Localized edema; M86.172 Other acute osteomyelitis, left ankle and foot; I25.10 Atherosclerotic heart disease of native coronary artery without angina pectoris; E78.00 Pure hypercholesterolemia, unspecified; I10 Essential (primary) hypertension; H26.9 Unspecified cataract; I25.2 Old myocardial infarction; N40.0 Benign prostatic hyperplasia without lower urinary tract symptoms; Z79.01 Long term (current) use of anticoagulants; Z95.828 Presence of other vascular implants and grafts; Z79.899 Other long term (current) drug therapy; Y83.8 Other surgical procedures as the cause of abnormal reaction of the patient, or of later complication, without mention of misadventure at the time of the procedure; Y92.238 Other place in hospital as the place of occurrence of the external cause ==

== ENCOUNTER → 2021-04-04 | Outpatient (CLI) | payer OTHER | LOC: SJCVCIMAG 12:10 | PROVIDERS: ATTEND Internal Medicine Cardiovascular Disease | DX: R94.31 Abnormal electrocardiogram [ECG] [EKG] (principal); I05.9 Rheumatic mitral valve disease, unspecified; I11.9 Hypertensive heart disease without heart failure; I25.10 Atherosclerotic heart disease of native coronary artery without angina pectoris; I73.9 Peripheral vascular disease, unspecified; I65.23 Occlusion and stenosis of bilateral carotid arteries; E78.00 Pure hypercholesterolemia, unspecified; R06.00 Dyspnea, unspecified; Z95.2 Presence of prosthetic heart valve; Z79.82 Long term (current) use of aspirin; Z79.899 Other long term (current) drug therapy; Z72.89 Other problems related to lifestyle; Z87.891 Personal history of nicotine dependence ==

== ENCOUNTER 2021-04-08 12:30 | Inpatient (IN) | payer OTHER ==
[~2021-04-08] VITALS: Ht 177.8 cm; Wt 62.4 kg
[2021-04-08 12:41] VITALS: BP 151/56
[2021-04-08 13:00] LABS: HEMATOCRIT 35.6 % (42.0-52.0); HEMOGLOBIN 11.5 gm/dL (14.0-18.0); MCH 31.2 pg (26.0-34.0); MCHC 32.2 g/dL (28.0-37.0); MCV 96.8 fL (80.0-100.0); PLATELET COUNT 127 thou/uL (150-400); RBC 3.68 mil/uL (4.50-6.00); RDW 14.4 % (10.5-14.5); WBC 8.1 thou/uL (4.0-11.0)
[2021-04-08 13:12] LABS: CALCIUM 8.6 mg/dL (8.5-10.1); CREATININE 1.2 mg/dL (0.7-1.3); POTASSIUM 4.3 mmol/L (3.5-5.1)
[2021-04-08 13:17] LABS: APTT 25.4 Seconds (24.5-32.8); INR 1.01
[2021-04-08 13:20] LABS: ALBUMIN 3.2 g/dL (3.4-5.0); TOTAL BILIRUBIN 0.4 mg/dL (0.2-1.0); TOTAL PROTEIN 7.2 g/dL (6.4-8.2)
[2021-04-08 13:57] LABS: ATYPICAL LYMPHS 3 %
[2021-04-08 17:11] VITALS: BP 177/62
[2021-04-08 21:01] VITALS: BP 199/62
[2021-04-08 22:00] VITALS: BP 210/80
[2021-04-08 23:00] VITALS: BP 167/64
[2021-04-08 23:56] LABS: HEMATOCRIT 32.9 % (42.0-52.0); MCH 31.9 pg (26.0-34.0); MCHC 33.4 g/dL (28.0-37.0); MCV 95.5 fL (80.0-100.0); RBC 3.44 mil/uL (4.50-6.00); RDW 14.3 % (10.5-14.5); WBC 9.7 thou/uL (4.0-11.0)
[2021-04-09] VITALS (20 sets, daily range): BP systolic 112–181; BP diastolic 42–88
[2021-04-09 00:11] LABS: APTT 27.2 Seconds (24.5-32.8)
[2021-04-09 00:13] LABS: CALCIUM 8.2 mg/dL (8.5-10.1); CREATININE 1.2 mg/dL (0.7-1.3); POTASSIUM 4.2 mmol/L (3.5-5.1)
[2021-04-09 06:52] LABS: APTT 31.6 Seconds (24.5-32.8)
[2021-04-09 10:26] LABS: HEMATOCRIT 35.5 % (42.0-52.0); HEMOGLOBIN 11.8 gm/dL (14.0-18.0); MCH 32.1 pg (26.0-34.0); MCHC 33.2 g/dL (28.0-37.0); MCV 96.6 fL (80.0-100.0); RBC 3.68 mil/uL (4.50-6.00); RDW 14.5 % (10.5-14.5); WBC 10.8 thou/uL (4.0-11.0)
[2021-04-09 10:41] LABS: ALBUMIN 3.3 g/dL (3.4-5.0); CALCIUM 8.6 mg/dL (8.5-10.1); CREATININE 1.2 mg/dL (0.7-1.3); POTASSIUM 4.4 mmol/L (3.5-5.1); TOTAL BILIRUBIN 0.6 mg/dL (0.2-1.0); TOTAL PROTEIN 7.1 g/dL (6.4-8.2)
--- NOTE | 2021-04-09 16:22 | NUR ---
INITIAL ASSESSMENT: SW reviewed chart and spoke with nursing and hospitalist. Pt was admitted from home due to occlusion of right lower extremity. Pt is currently in the ICU. Pt had angiogram yesterday per IR. Pt with hx CAD, aortic stenosis, HTN. SW met with pt at bedside. Introduced role of SW. Pt is alert/orientated x 4. Pt reports he lives at home with his . Prior to admission, pt was using a walker to assist with ambulation. Pt has been to [facility] in the past. Pt's PCP is Dr. Adam Villasenor. Pt's goal is to return home. SW is following to assist as needed with discharge planning.
[2021-04-10] VITALS (11 sets, daily range): BP systolic 90–154; BP diastolic 30–65
[2021-04-10 03:08] LABS: APTT 31.6 Seconds (24.5-32.8)
[2021-04-10] MEDS ORDERED: NORVASC5 MG PO (11:06)
--- NOTE | 2021-04-10 11:55 | NUR ---
SW reviewed chart and spoke with nursing and hospitalist. Pt is progressing towards goals for discharge. Pt may be ready to discharge later today. PT/OT evals ordered. Plan is for pt to discharge home. No SW needs identified at this time. SW is available to assist should needs arise.
--- NOTE | 2021-04-10 17:00 | NUR ---
PATIENT PROGRESSING TOWARDS THE PLAN OF CARE. CCU TX ORDERS IN. 5N PHYSICIAN CONSULTED BUT YET TO VISIT.
--- NOTE | 2021-04-10 18:15 | NUR ---
patient transferred to at 1805. pt belongings and chart taken with pt. this rn will notify dpoa of change.
--- NOTE | 2021-04-10 18:37 | NUR ---
PATIENT TRANSFER FROM ICU TO [facility] AT 1815. A/O X4. AMBULATED TO BATHROOM WITH SOB. VSS. KEEP MONITOR.
[2021-04-11 04:16] VITALS: BP 116/70
--- NOTE | 2021-04-11 05:16 | NUR ---
Medicated for pain and sleep per his request with good relief. He stated he slept fair during the night. Up with assist to commode , no bm just passed gas. Denies any other concern at this time. Making progress towards care plan goals.
[2021-04-11 07:16] VITALS: BP 130/58
--- NOTE | 2021-04-11 11:43 | NUR ---
SW reviewed chart and spoke with nursing and attending physician. Pt was transferred to 3W from ICU and is progressing towards goals for discharge. 5N consulted. Pt may be too high level for admission to inpt acute rehab. Awaiting PT eval. SW met with pt at bedside to discuss discharge plan. Pt is alert/orientated x 4. Pt sitting up in chair. Pt states his therapy evals were good and he is hoping to discharge home today. Pt states he is currently doing outpatient cardiac rehab. Pt is hoping to be able to resume his outpatient cardiac rehab on Friday. Pt has used [facility] in the past. SW explained that pt cannot have both HH and outpatient therapy. SW to inform attending physician and decide if pt needs HH or can resume outpatient therapy. SW updated attending physician. SW is following to assist as needed with discharge planning.
[2021-04-11 13:34] VITALS: BP 130/58
[2021-04-11 14:12] LABS: HEMATOCRIT 32.8 % (42.0-52.0); HEMOGLOBIN 11.3 gm/dL (14.0-18.0); MCH 33.3 pg (26.0-34.0); MCHC 34.4 g/dL (28.0-37.0); MCV 96.8 fL (80.0-100.0); RBC 3.39 mil/uL (4.50-6.00); RDW 17.2 % (10.5-14.5); WBC 11.7 thou/uL (4.0-11.0)
[2021-04-11 14:57] VITALS: BP 154/64
--- NOTE | 2021-04-11 19:39 | NUR ---
RN ASSUMED PT'S CARE AT 0700-1620PM, PT IS A&OX4, PT 'S VS ARE STABLE, PT DENIES PAIN AND SOB, RN RECEIVED ORDER TO DC PT TO HOME, PT AND PT'S FAMILY UNDERSTAND DC TEACH WELL, PT'S FAMILY GRAVITY PROSPECTING OPERATOR HELPER PT AT 1620PM.
--- NOTE | 2021-04-11 19:46 | NUR ---
PT'S JACOBO CATHETER HAS REMOVED AT 1400PM, PT HAS VOID URINE 200ML AT 1530PM.
[2021-04-13 01:06] LABS: HBsAG-EMPLOYEE EXPOSURE Negative (Negative); HCV AB-EMPLOYEE EXPOSURE 0.3 (0.0-0.9)
== END 2021-04-11 16:39 | disposition home or self-care (01) | DRG 253 ==
LOC: ER 12:30 → EROBS 17:13 → ICU 17:13 → 3W 17:13 → ICU 19:29 → 3W 04-10 18:05
PROVIDERS: Nurse Practitioner Adult Health; Nurse Practitioner Family; Radiology Diagnostic Radiology; ADMIT Internal Medicine; ATTEND Internal Medicine
PROC: B41D1ZZ Fluoroscopy of Aorta and Bilateral Lower Extremity Arteries using Low Osmolar Contrast (ICD-10-PCS; principal; 2021-04-08)
PROC: 3E03317 Introduction of Other Thrombolytic into Peripheral Vein, Percutaneous Approach (ICD-10-PCS; 2021-04-09)
PROC: 047P34Z Dilation of Right Anterior Tibial Artery with Drug-eluting Intraluminal Device, Percutaneous Approach (ICD-10-PCS; 2021-04-09)
PROC: 047M3Z1 Dilation of Right Popliteal Artery using Drug-Coated Balloon, Percutaneous Approach (ICD-10-PCS; 2021-04-09)
PROC: B41F1ZZ Fluoroscopy of Right Lower Extremity Arteries using Low Osmolar Contrast (ICD-10-PCS; 2021-04-09)
DX: I77.1 Stricture of artery (principal); E44.0 Moderate protein-calorie malnutrition; D69.6 Thrombocytopenia, unspecified; I25.10 Atherosclerotic heart disease of native coronary artery without angina pectoris; I10 Essential (primary) hypertension; I73.9 Peripheral vascular disease, unspecified; N40.0 Benign prostatic hyperplasia without lower urinary tract symptoms; E03.9 Hypothyroidism, unspecified; E78.00 Pure hypercholesterolemia, unspecified; G47.00 Insomnia, unspecified; E78.5 Hyperlipidemia, unspecified; Z20.822 Contact with and (suspected) exposure to COVID-19; I35.0 Nonrheumatic aortic (valve) stenosis; M19.90 Unspecified osteoarthritis, unspecified site; Z98.42 Cataract extraction status, left eye; Z98.41 Cataract extraction status, right eye; Z95.820 Peripheral vascular angioplasty status with implants and grafts; Z87.891 Personal history of nicotine dependence; Z95.2 Presence of prosthetic heart valve; Z82.49 Family history of ischemic heart disease and other diseases of the circulatory system; Z89.422 Acquired absence of other left toe(s)
CPT/HCPCS: 10078; 10779; 10879

== ENCOUNTER → 2021-04-17 | Outpatient (CLI) | payer OTHER | LOC: SJCVC 15:02 | PROVIDERS: ATTEND Nuclear Medicine Nuclear Cardiology | DX: I25.10 Atherosclerotic heart disease of native coronary artery without angina pectoris (principal); I10 Essential (primary) hypertension; I73.9 Peripheral vascular disease, unspecified; I77.9 Disorder of arteries and arterioles, unspecified; I34.2 Nonrheumatic mitral (valve) stenosis; E78.00 Pure hypercholesterolemia, unspecified; E11.9 Type 2 diabetes mellitus without complications; Z98.890 Other specified postprocedural states; Z79.82 Long term (current) use of aspirin; Z79.899 Other long term (current) drug therapy; Z87.891 Personal history of nicotine dependence ==

== ENCOUNTER → 2021-05-24 | Outpatient (CLI) | payer OTHER | LOC: SJCVCIMAG 05-07 14:06 | PROVIDERS: ATTEND Internal Medicine Cardiovascular Disease | DX: I70.203 Unspecified atherosclerosis of native arteries of extremities, bilateral legs (principal); I25.10 Atherosclerotic heart disease of native coronary artery without angina pectoris; E11.9 Type 2 diabetes mellitus without complications; E78.00 Pure hypercholesterolemia, unspecified; I10 Essential (primary) hypertension; Z95.5 Presence of coronary angioplasty implant and graft; Z87.891 Personal history of nicotine dependence; Z72.89 Other problems related to lifestyle; Z79.82 Long term (current) use of aspirin; Z79.899 Other long term (current) drug therapy ==

== ENCOUNTER → 2021-06-20 | Outpatient (CLI) | payer OTHER | LOC: RAD 14:55 | PROVIDERS: ATTEND Internal Medicine | DX: R06.00 Dyspnea, unspecified (principal) ==

== ENCOUNTER → 2021-06-28 | Outpatient (CLI) | payer OTHER | LOC: CAT 13:35 | PROVIDERS: ATTEND Internal Medicine | DX: J98.4 Other disorders of lung (principal); J47.9 Bronchiectasis, uncomplicated; J84.89 Other specified interstitial pulmonary diseases; I70.0 Atherosclerosis of aorta; I25.10 Atherosclerotic heart disease of native coronary artery without angina pectoris; M25.78 Osteophyte, vertebrae; J84.10 Pulmonary fibrosis, unspecified; M48.04 Spinal stenosis, thoracic region; M43.24 Fusion of spine, thoracic region; Z95.2 Presence of prosthetic heart valve ==